=== PATIENT | female | born 1960 | race Caucasian/White ===

== ENCOUNTER 2022-05-07 19:02 | Inpatient (IN) | payer MEDICAID ==
[~2022-05-07] VITALS: Ht 167.6 cm; Wt 60.0 kg
[2022-05-07 20:34] LABS: BASOPHILS # (AUTO) 0.1 X10'3 (0-0.2); BASOPHILS % (AUTO) 1.1 % (0-1); EOSINOPHILS % (AUTO) 0.2 % (0-6); HEMATOCRIT 29.4 % (35.0-45.0); HEMOGLOBIN 9.5 g/dl (12.0-16.0); LYMPHOCYTES # (AUTO) 1.6 X10'3 (1.1-4.8); LYMPHOCYTES % (AUTO) 16.6 % (21-51); MEAN CORPUSCULAR HEMOGLOBIN 30.9 PG (27.0-31.0); MEAN CORPUSCULAR HGB CONC 32.5 g/dL (33.0-36.5); MEAN CORPUSCULAR VOLUME 95.3 FL (78-98); MEAN PLATELET VOLUME 7.9 FL (7.4-10.4); MONOCYTES # (AUTO) 0.6 X10'3 (0-0.9); MONOCYTES % (AUTO) 5.9 % (2-12); NEUTROPHILS # (AUTO) 7.3 X10'3 (1.8-7.7); NEUTROPHILS % (AUTO) 76.2 % (42-75); PLATELET COUNT 286 X10'3 (140-440); RED BLOOD COUNT 3.08 X10'6 (4.20-5.60); WHITE BLOOD COUNT 9.6 X10'3 (4.5-11.0)
[2022-05-07 20:57] LABS: ALBUMIN 1.6 G/DL (3.4-5.0); ALBUMIN/GLOBULIN RATIO 0.5 (1.1-1.5); ALKALINE PHOSPHATASE 235 IU/L (46-116); ANION GAP 7 (8-16); ASPARTATE AMINO TRANSFERASE 22 U/L (10-37); BILIRUBIN,TOTAL 0.3 MG/DL (0.1-1.0); BLOOD UREA NITROGEN 9 MG/DL (7-18); BUN/CREATININE RATIO 12.5 (10.0-20.0); CALCIUM 7.6 MG/DL (8.5-10.1); CHLORIDE 106 MMOL/L (99-107); CREATININE 0.72 MG/DL (0.40-0.90); GLUCOSE 81 MG/DL (70-104); POTASSIUM 3.3 MMOL/L (3.5-5.1); SODIUM 145 MMOL/L (135-145); TOTAL CARBON DIOXIDE 32.2 MMOL/L (24-32); TOTAL PROTEIN 5.1 G/DL (6.4-8.2); eGFR 82 ML/MIN
[2022-05-07 20:59] LABS: MAGNESIUM 1.5 MG/DL (1.5-2.4)
[2022-05-07 21:08] LABS: ALANINE AMINOTRANSFERASE < 6 U/L (12-78)
[2022-05-07] MEDS ORDERED: piperacillin/tazo 3.375gm/50ml 50 ML IV ONE (21:50)
--- NOTE | 2022-05-07 22:04 | NUR ---
DR. BELL NOTIFIED OF PTS ALLERGY TO [facility]. PER DR BELL THE PT RECIEVED ZOSYN FROM TRANSFERING FACILITY AND TO PROCEDE TO GIVE THE ZOSYN ORDERED.
[2022-05-07] MEDS ORDERED: VANCOMYCIN 1,500MG in normal saline IV soln 300 ML IV ONE (22:10)
--- NOTE | 2022-05-07 22:50 | NUR ---
PT O2 SATURATION AT 85% ON RA. PT PLACED ON 4L NASAL CANULA AND O2 SATURATION UP TO 95%
[2022-05-08] MEDS ORDERED: diphenhydrAMINE 25mg capsule PO PRN (00:30)
[2022-05-08] MEDS ORDERED: morphine 2 MG/ML inj. syringe IV PRN ×2 (00:30)
[2022-05-08] MEDS ORDERED: mag hydrox/Alum hydrox/simeth 30ml oral suspension PO PRN (00:30)
[2022-05-08] MEDS ORDERED: diphenhydrAMINE 50 mg/ml inj IV PRN (00:30)
[2022-05-08] MEDS ORDERED: acetaminophen 325mg tablet PO PRN ×2 (00:30)
[2022-05-08] MEDS ORDERED: normal saline 1000ml 1,000 ML IV SCH (00:30)
[2022-05-08] MEDS ORDERED: potassium Cl 40MEQ/1/2NS 520ml 520 ML IV PRN (00:30)
[2022-05-08] MEDS ORDERED: magnesium 4gm in 100ml NS 100 ML IV PRN (00:30)
[2022-05-08] MEDS ORDERED: potassium Cl 20 mEq SR tablet PO PRN (00:30)
[2022-05-08] MEDS ORDERED: HYDROcodone/acetaminophen 5mg/325mg tablet PO PRN (00:30)
[2022-05-08] MEDS ORDERED: ondansetron 4mg rapidly disintigrating tab PO PRN (00:30)
[2022-05-08] MEDS ORDERED: ipratropium/albuterol 3ml nebule NEB PRN (00:30)
[2022-05-08] MEDS ORDERED: magnesium Cl slow-release 64mg tablet PO PRN (00:30)
[2022-05-08 01:26] LABS: APTT 31 SECONDS (22-32); D-DIMER 2.49 MG/L FEU (0-0.50)
[2022-05-08 01:34] LABS: MAGNESIUM 1.4 MG/DL (1.5-2.4); PHOSPHORUS 2.6 MG/DL (2.3-4.5); POTASSIUM 3.2 MMOL/L (3.5-5.1)
[2022-05-08 01:58] LABS: CLARITY,URINE CLEAR (Clear); COLOR,URINE YELLOW (Yellow); GLUCOSE, URINE NEGATIVE (Neg); KETONES,URINE NEGATIVE (Neg); LEUKOCYTE ESTERASE ,URINE NEGATIVE (Neg); NITRITES, URINE NEGATIVE (Neg); OCCULT BLOOD,URINE NEGATIVE (Neg); PROTEIN,URINE NEGATIVE (Neg); UROBILINOGEN,URINE 0.2 E.U/dL (0.2-1.0)
[2022-05-08 02:03] LABS: UA COLLECTION TYPE FOLEY CATH
--- NOTE | 2022-05-08 04:35 | NUR ---
PT TRANSFERED TO ER ROOM 16.
[2022-05-08] MEDS ORDERED: HYDR-3972 PO (05:38)
[2022-05-08] MEDS ORDERED: ALBU90AE2 INH (05:38)
[2022-05-08] MEDS ORDERED: ATR0.5NEB NEB (05:38)
[2022-05-08] MEDS ORDERED: LISI40TA13 PO (05:38)
[2022-05-08] MEDS ORDERED: BUDE10.2 INH (05:38)
[2022-05-08] MEDS ORDERED: DOCU-342 PO (05:38)
[2022-05-08] MEDS ORDERED: ERGO500093 PO (05:38)
[2022-05-08] MEDS ORDERED: APIX5TAB3 PO (05:38)
[2022-05-08] MEDS ORDERED: OLOP5DRO26 EACHEYE (05:38)
[2022-05-08] MEDS ORDERED: PREG75CA75 PO (05:38)
[2022-05-08] MEDS ORDERED: METO-384 PO (05:38)
[2022-05-08] MEDS ORDERED: albuterol 2.5 MG/3 ML nebule NEB PRN (06:50)
[2022-05-08] MEDS ORDERED: ipratropium 0.5 MG/2.5ML nebule NEB PRN (06:50)
[2022-05-08] MEDS ORDERED: HYDROcodone/acetaminophen 10/325mg tab PO PRN (06:50)
[2022-05-08] MEDS ORDERED: ALBUTEROL SULFATE INH PRN (06:50)
--- NOTE | 2022-05-08 07:12 | NUR ---
attempted to give report but the nurse is busy will call back
[2022-05-08] MEDS: pantoprazole 40mg Tablet.DR PO SCH (07:30)
--- NOTE | 2022-05-08 07:30 | NUR ---
Attempted to call ER for report. Placed on hold and then no answer. Will try again.
[2022-05-08] MEDS: pregabalin 75mg capsule PO SCH ×2 (08:00→21:22)
[2022-05-08] MEDS ORDERED: non-formulary drug (Budesonide/Formoterol Fumarate (Symbicort 160-4.5 Mcg Inhaler) 2 PUFFS INH SCH (08:00)
[2022-05-08] MEDS: tetrahydrozoline 0.05% 15ml ophthalmic drops EACHEYE SCH ×2 (08:00→20:00)
[2022-05-08] MEDS: heparin, porcine 5000 units/ml vial SQ SCH ×2 (08:00→21:24)
[2022-05-08] MEDS: methylPREDNISolone sod succ 125mg/2ml vial IV SCH ×2 (08:00→21:23)
[2022-05-08] MEDS: aspirin 81mg, enteric-coated 1 TAB TABLET.DR PO SCH (08:00)
[2022-05-08] MEDS: docusate sod 100mg capsule PO SCH ×4 (08:00→20:00)
[2022-05-08] MEDS: K and/or MAG REPLACEMENT MC SCH ×2 (08:00→20:00)
[2022-05-08] MEDS: metoprolol succinate 25mg (24-HOUR) SR. Tablet PO SCH (08:30)
[2022-05-08] MEDS: apixaban 5mg tablet PO SCH ×2 (08:30→21:23)
[2022-05-08] MEDS: lisinopril 20mg tablet PO SCH (08:32)
[2022-05-08] MEDS: furosemide 20 MG/2 ML vial IV SCH ×2 (08:33→21:23)
[2022-05-08] MEDS ORDERED: vancomycin/NS 1 GM ADD-VANTAGE 250 ML IV SCH (10:00)
[2022-05-08 10:06] VITALS: BP 154/84
--- NOTE | 2022-05-08 10:10 | NUR ---
Received patient to room 350B via gurney accompanied by x1 staff. Patient alert and oriented with no complaints at this time. Patient oriented to room and call light. Call light placed within patient's reach. Bed low and locked, side railx2 up, freq rounding, patient refuses to have socks on at this time due to neuropathy. Will continue to monitor.
[2022-05-08] MEDS ORDERED: HYDROmorphone inj. 0.5 MG/0.5 ML DISP.SYRIN IV PRN (10:20)
[2022-05-08] MEDS: potassium Cl 20 mEq SR tablet PO PRN ×3 (10:27→21:23)
[2022-05-08] MEDS: HYDROcodone/acetaminophen 10/325mg tab PO PRN ×2 (10:28→21:24)
--- NOTE | 2022-05-08 10:57 | NUR ---
Received order for consult. Inappropriate referral. Didn't meet with patient.
[2022-05-08] MEDS: ondansetron/PF 4mg/2ml inj IV PRN (10:58)
[2022-05-08] MEDS ORDERED: piperacillin/tazo 4.5gm/100ml 100 ML IV SCH (11:00)
[2022-05-08] MEDS: vancomycin/NS 1 GM ADD-VANTAGE 250 ML IV SCH ×2 (11:00→22:57)
[2022-05-08] MEDS ORDERED: iohexol 350 MG/ML 50ML vial IV ONE (11:41)
[2022-05-08] MEDS ORDERED: iohexol 350MG/ML 100ml bottle IV ONE (11:41)
--- NOTE | 2022-05-08 11:58 | NUR ---
Patient down to CT.
--- NOTE | 2022-05-08 12:36 | NUR ---
Patient back to room
--- NOTE | 2022-05-08 12:58 | NUR ---
Spoke to Dr. Hancock on phone to let him know that patient HR in the 50's. Patient asymptomatic. Will continue to monitor.
[2022-05-08 13:04] VITALS: BP 145/80
--- NOTE | 2022-05-08 13:15 | NUR ---
TO DR ORTIZ PAGER, PT STILL SLIGHTLY NAUSEAS. NO VOMITING NOTED, PT ABLE TO TALK ABOUT BEING NAUSEAS WITH EASE. PAGER ID: [phone] MESSAGE: MAJO, SURG [address] 350B PATIENT STILL NAUSEAS AFTER ZOFRAN, CAN WE PLEASE GET A BACKUP NAUSEA MED?
[2022-05-08] MEDS ORDERED: metoclopramide 5 mg/ml inj IV PRN (14:10)
--- NOTE | 2022-05-08 14:24 | NUR ---
Patient down to MRI.
[2022-05-08 15:34] LABS: C DIFF SPECIMEN=DIARRHEA? ACCEPTABLE; C DIFFICILE TOXINS A&B NEGATIVE (Neg)
--- NOTE | 2022-05-08 15:36 | NUR ---
patient back from MRi.
--- NOTE | 2022-05-08 15:59 | NUR ---
PRESSURE ULCER EDUCATION: DEFINITION: A pressure ulcer is an area of skin that breaks down when you stay in one position too long. The constant pressure against the skin reduces the blood flow to that area and the affected tissue dies. CAUSES: "Being bedridden or in a wheelchair "Fragile skin "Having a chronic condition, such as diabetes or vascular disease "Inability to move certain parts of your body without assistance "Older age "Incontinence of urine or stool SYMPTOMS: "A reddened area that DOES NOT turn white when pressed on - this can be the beginning of a pressure ulcer "A blister, deep sore or a crater - these can be advanced pressure ulcers FIRST AID: "Relieve the pressure on this area "Keep the area clean and dry "Call your primary doctor if you see any of the above symptoms "DO NOT massage the area "DO NOT use a donut shaped or ring shaped pillow- these actually interfere with the blood flow and cause complications PREVENTION: "Check for pressure ulcers everyday "Change position at least every two hours to relieve pressure "Use items that help relieve pressure- pillows, sheepskin, foam padding, and powders. "Keep skin clean and dry "Eat healthy well balanced meals "Exercise daily IF YOU SEE ANY OF THESE SYMPTOMS WHILE IN THE HOSPITAL - TELL YOUR NURSE IMMEDIATELY. IF YOU SEE ANY OF THESE SYMPTOMS WHILE AT HOME OR HAVE ANY QUESTIONS OR CONCERNS ABOUT PRESSURE ULCERS - CALL YOUR PRIMARY DOCTOR IMMEDIATELY. Addendum: 05/08/22 at 1600 by Priscilla Curran RN Amended: Links added.
--- NOTE | 2022-05-08 16:10 | NUR ---
PAGER ID: [phone] MESSAGE: 350B-Allan James- per singing telegram performer pt HR in the 40's. Now she is in the 50's. Patient was sleeping. VS 159/83, 69, 20, 100%3LNC. Denies symptoms other than pain in legs. - Carmen [phone]
--- NOTE | 2022-05-08 16:11 | NUR ---
Notified by charge histotechnologist that tele manager monitoring call stating patient HR in the 40's. Went to assess patient and patient sleeping. VS were 159/83, HR 69, 20, 100% 3LNC. Patient denies any symptoms. Notified Dr. Hancock. Will continue to monitor. final operations technician in at patient's bedside.
--- NOTE | 2022-05-08 17:10 | NUR ---
Dr Hancock notified again patient's HR in the 50's. Patient was sleeping. Patient denies symptoms. Will continue to monitor.
--- NOTE | 2022-05-08 17:16 | NUR ---
DUARTE DISCONTINUED 3:45PM
[2022-05-08 18:00] VITALS: BP 153/82
--- NOTE | 2022-05-08 18:10 | NUR ---
Problems reprioritized. Patient report given, questions answered & plan of care reviewed with DAVID Munoz.
--- NOTE | 2022-05-08 19:01 | NUR ---
Patient in room FLEX 350. I have received report from INGRID HERNANDEZ and had the opportunity to ask questions and assume patient care.
[2022-05-08] MEDS ORDERED: temazepam 15mg capsule PO PRN (21:00)
[2022-05-08] MEDS: loperamide 2mg capsule PO PRN (21:23)
[2022-05-08 22:00] VITALS: BP 141/78
[2022-05-09] MEDS: HYDROcodone/acetaminophen 10/325mg tab PO PRN ×5 (04:48→22:26)
[2022-05-09 05:36] VITALS: BP 141/78
--- NOTE | 2022-05-09 06:14 | NUR ---
Problems reprioritized. Patient report given, questions answered & plan of care reviewed with STACEY RN.
--- NOTE | 2022-05-09 06:20 | NUR ---
Patient in room FLEX 350. I have received report from DAVID Munoz and had the opportunity to ask questions and assume patient care.
[2022-05-09 07:30] VITALS: BP 150/60
[2022-05-09] MEDS: budesonide 0.5mg/2ml UD nebule IH SCH ×2 (07:45→20:00)
[2022-05-09] MEDS: metoprolol succinate 25mg (24-HOUR) SR. Tablet PO SCH (08:00)
[2022-05-09] MEDS ORDERED: VANCOMYCIN LEVEL IV ONE (09:30)
[2022-05-09] MEDS: methylPREDNISolone sod succ 125mg/2ml vial IV SCH ×2 (09:36→20:14)
[2022-05-09] MEDS: furosemide 20 MG/2 ML vial IV SCH ×2 (09:37→20:14)
[2022-05-09] MEDS: aspirin 81mg, enteric-coated 1 TAB TABLET.DR PO SCH (09:38)
[2022-05-09] MEDS: pregabalin 75mg capsule PO SCH ×2 (09:38→20:14)
[2022-05-09] MEDS: lisinopril 20mg tablet PO SCH (09:39)
[2022-05-09] MEDS: docusate sod 100mg capsule PO SCH ×2 (09:39→20:00)
[2022-05-09] MEDS: apixaban 5mg tablet PO SCH ×2 (09:39→20:14)
[2022-05-09] MEDS: pantoprazole 40mg Tablet.DR PO SCH (09:39)
[2022-05-09 09:50] LABS: BASOPHILS % (AUTO) 0.9 % (0-1); EOSINOPHILS % (AUTO) 0 % (0-6); HEMATOCRIT 38.2 % (35.0-45.0); HEMOGLOBIN 12.2 g/dl (12.0-16.0); LYMPHOCYTES % (AUTO) 19.2 % (21-51); MEAN CORPUSCULAR HEMOGLOBIN 30.7 PG (27.0-31.0); MEAN CORPUSCULAR HGB CONC 32.1 g/dL (33.0-36.5); MEAN CORPUSCULAR VOLUME 95.8 FL (78-98); MEAN PLATELET VOLUME 8.3 FL (7.4-10.4); MONOCYTES # (AUTO) 0.2 X10'3 (0-0.9); MONOCYTES % (AUTO) 3.2 % (2-12); NEUTROPHILS % (AUTO) 76.7 % (42-75); PLATELET COUNT 286 X10'3 (140-440); RED BLOOD COUNT 3.98 X10'6 (4.20-5.60); RED CELL DISTRIBUTION WIDTH 18.4 % (11.5-14.5); WHITE BLOOD COUNT 5.2 X10'3 (4.5-11.0)
[2022-05-09] MEDS: tetrahydrozoline 0.05% 15ml ophthalmic drops EACHEYE SCH ×2 (10:29→20:16)
[2022-05-09 10:30] VITALS: BP 147/64
[2022-05-09 10:35] LABS: ALBUMIN 1.7 G/DL (3.4-5.0); ALBUMIN/GLOBULIN RATIO 0.4 (1.1-1.5); ALKALINE PHOSPHATASE 242 IU/L (46-116); ANION GAP 8 (8-16); ASPARTATE AMINO TRANSFERASE 20 U/L (10-37); BILIRUBIN,TOTAL 0.5 MG/DL (0.1-1.0); BLOOD UREA NITROGEN 7 MG/DL (7-18); BUN/CREATININE RATIO 13.5 (10.0-20.0); CALCIUM 7.9 MG/DL (8.5-10.1); CHLORIDE 103 MMOL/L (99-107); CHOL/HDL RATIO 4.5 (0.00-4.99); CHOLESTEROL 250 MG/DL (0-200); CREATININE 0.52 MG/DL (0.40-0.90); GLUCOSE 127 MG/DL (70-104); HDL CHOLESTEROL 55 MG/DL (35-60); LDL CHOLESTEROL 156 MG/DL (50-100); POTASSIUM 3.9 MMOL/L (3.5-5.1); SODIUM 138 MMOL/L (135-145); TOTAL CARBON DIOXIDE 27.1 MMOL/L (24-32); TOTAL PROTEIN 5.6 G/DL (6.4-8.2); TRIGLYCERIDES 162 MG/DL (20-135); eGFR > 90 ML/MIN
[2022-05-09 10:59] LABS: ALANINE AMINOTRANSFERASE < 6 U/L (12-78)
[2022-05-09 11:02] LABS: VANCOMYCIN,TROUGH 33.5 UG/ML (6.0-14.0)
[2022-05-09 11:42] LABS: MAGNESIUM 1.7 MG/DL (1.5-2.4)
[2022-05-09] MEDS: K and/or MAG REPLACEMENT MC SCH ×2 (11:48→19:16)
[2022-05-09 18:00] VITALS: BP 118/70
--- NOTE | 2022-05-09 18:30 | NUR ---
Problems reprioritized. Patient report given, questions answered & plan of care reviewed with DAVID Munoz.
--- NOTE | 2022-05-09 18:50 | NUR ---
Patient in room FLEX 350. I have received report from STACEY HERNANDEZ and had the opportunity to ask questions and assume patient care.
[2022-05-09 22:00] VITALS: BP 129/68
[2022-05-10] MEDS: HYDROcodone/acetaminophen 10/325mg tab PO PRN ×5 (03:18→20:35)
--- NOTE | 2022-05-10 06:44 | NUR ---
Problems reprioritized. Patient report given, questions answered & plan of care reviewed with HECTOR HERNANDEZ.
[2022-05-10 06:57] LABS: BASOPHILS % (AUTO) 0.7 % (0-1); EOSINOPHILS % (AUTO) 0 % (0-6); HEMATOCRIT 32.8 % (35.0-45.0); HEMOGLOBIN 10.7 g/dl (12.0-16.0); LYMPHOCYTES # (AUTO) 0.8 X10'3 (1.1-4.8); LYMPHOCYTES % (AUTO) 14.2 % (21-51); MEAN CORPUSCULAR HEMOGLOBIN 31.3 PG (27.0-31.0); MEAN CORPUSCULAR HGB CONC 32.7 g/dL (33.0-36.5); MEAN CORPUSCULAR VOLUME 95.8 FL (78-98); MEAN PLATELET VOLUME 8.8 FL (7.4-10.4); MONOCYTES # (AUTO) 0.2 X10'3 (0-0.9); MONOCYTES % (AUTO) 3.8 % (2-12); NEUTROPHILS # (AUTO) 4.6 X10'3 (1.8-7.7); NEUTROPHILS % (AUTO) 81.3 % (42-75); PLATELET COUNT 273 X10'3 (140-440); RED BLOOD COUNT 3.42 X10'6 (4.20-5.60); RED CELL DISTRIBUTION WIDTH 18.2 % (11.5-14.5); WHITE BLOOD COUNT 5.6 X10'3 (4.5-11.0)
[2022-05-10 07:00] VITALS: BP 150/79
[2022-05-10 07:23] LABS: ALANINE AMINOTRANSFERASE 6 U/L (12-78); ALBUMIN 1.7 G/DL (3.4-5.0); ALBUMIN/GLOBULIN RATIO 0.5 (1.1-1.5); ALKALINE PHOSPHATASE 190 IU/L (46-116); ANION GAP 7 (8-16); ASPARTATE AMINO TRANSFERASE 17 U/L (10-37); BILIRUBIN,TOTAL 0.3 MG/DL (0.1-1.0); BLOOD UREA NITROGEN 15 MG/DL (7-18); BUN/CREATININE RATIO 22.7 (10.0-20.0); CALCIUM 7.5 MG/DL (8.5-10.1); CHLORIDE 102 MMOL/L (99-107); CREATININE 0.66 MG/DL (0.40-0.90); GLUCOSE 154 MG/DL (70-104); MAGNESIUM 1.6 MG/DL (1.5-2.4); POTASSIUM 3.6 MMOL/L (3.5-5.1); SODIUM 139 MMOL/L (135-145); TOTAL CARBON DIOXIDE 30.5 MMOL/L (24-32); eGFR 90 ML/MIN
[2022-05-10] MEDS: budesonide 0.5mg/2ml UD nebule IH SCH (07:37)
--- NOTE | 2022-05-10 07:38 | NUR ---
Patient in room FLEX 350. I have received report from perla frazier and had the opportunity to ask questions and assume patient care.
[2022-05-10] MEDS: apixaban 5mg tablet PO SCH ×2 (08:00→20:35)
[2022-05-10] MEDS: pregabalin 75mg capsule PO SCH ×2 (08:00→20:35)
[2022-05-10] MEDS: metoprolol succinate 25mg (24-HOUR) SR. Tablet PO SCH (08:00)
[2022-05-10] MEDS: K and/or MAG REPLACEMENT MC SCH ×2 (08:00→20:50)
[2022-05-10] MEDS: aspirin 81mg, enteric-coated 1 TAB TABLET.DR PO SCH (08:00)
[2022-05-10] MEDS: furosemide 20 MG/2 ML vial IV SCH ×2 (08:00→20:35)
[2022-05-10] MEDS: docusate sod 100mg capsule PO SCH ×2 (08:00→20:00)
[2022-05-10] MEDS: pantoprazole 40mg Tablet.DR PO SCH (08:00)
[2022-05-10] MEDS: lisinopril 20mg tablet PO SCH (08:00)
[2022-05-10] MEDS: methylPREDNISolone sod succ 125mg/2ml vial IV SCH ×2 (08:01→20:35)
[2022-05-10] MEDS: tetrahydrozoline 0.05% 15ml ophthalmic drops EACHEYE SCH ×2 (08:16→20:40)
[2022-05-10 10:00] VITALS: BP 139/60
[2022-05-10] MEDS ORDERED: iohexol 350MG/ML 100ml bottle IV ONE (17:09)
[2022-05-10 18:00] VITALS: BP 133/62
--- NOTE | 2022-05-10 19:22 | NUR ---
Patient in room FLEX 350. I have received report from HECTOR HERNANDEZ and had the opportunity to ask questions and assume patient care.
[2022-05-10 22:00] VITALS: BP 147/79
[2022-05-11] MEDS: HYDROcodone/acetaminophen 10/325mg tab PO PRN ×5 (04:36→22:37)
[2022-05-11 06:00] VITALS: BP 158/70
--- NOTE | 2022-05-11 06:21 | NUR ---
Problems reprioritized. Patient report given, questions answered & plan of care reviewed with MADDIE HERNANDEZ.
--- NOTE | 2022-05-11 06:22 | NUR ---
Problems reprioritized. Patient report given, questions answered & plan of care reviewed with MADDIE HERNANDEZ.
[2022-05-11 06:24] LABS: ALBUMIN 1.8 G/DL (3.4-5.0); ALBUMIN/GLOBULIN RATIO 0.5 (1.1-1.5); ALKALINE PHOSPHATASE 168 IU/L (46-116); ANION GAP 5 (8-16); ASPARTATE AMINO TRANSFERASE 13 U/L (10-37); BILIRUBIN,TOTAL 0.2 MG/DL (0.1-1.0); BLOOD UREA NITROGEN 16 MG/DL (7-18); BUN/CREATININE RATIO 24.2 (10.0-20.0); CALCIUM 8.1 MG/DL (8.5-10.1); CHLORIDE 104 MMOL/L (99-107); CREATININE 0.66 MG/DL (0.40-0.90); GLUCOSE 139 MG/DL (70-104); MAGNESIUM 1.7 MG/DL (1.5-2.4); POTASSIUM 3.7 MMOL/L (3.5-5.1); SODIUM 141 MMOL/L (135-145); TOTAL CARBON DIOXIDE 31.8 MMOL/L (24-32); TOTAL PROTEIN 5.2 G/DL (6.4-8.2); eGFR 90 ML/MIN
[2022-05-11 06:26] LABS: ALANINE AMINOTRANSFERASE < 6 U/L (12-78)
[2022-05-11 06:31] LABS: BASOPHILS % (AUTO) 0.4 % (0-1); EOSINOPHILS % (AUTO) 0 % (0-6); HEMATOCRIT 33.4 % (35.0-45.0); HEMOGLOBIN 11.1 g/dl (12.0-16.0); LYMPHOCYTES # (AUTO) 0.8 X10'3 (1.1-4.8); LYMPHOCYTES % (AUTO) 12.3 % (21-51); MEAN CORPUSCULAR HEMOGLOBIN 31.8 PG (27.0-31.0); MEAN CORPUSCULAR HGB CONC 33.2 g/dL (33.0-36.5); MEAN CORPUSCULAR VOLUME 95.7 FL (78-98); MEAN PLATELET VOLUME 8.7 FL (7.4-10.4); MONOCYTES # (AUTO) 0.3 X10'3 (0-0.9); MONOCYTES % (AUTO) 4.8 % (2-12); NEUTROPHILS # (AUTO) 5.2 X10'3 (1.8-7.7); NEUTROPHILS % (AUTO) 82.5 % (42-75); PLATELET COUNT 302 X10'3 (140-440); RED BLOOD COUNT 3.49 X10'6 (4.20-5.60); WHITE BLOOD COUNT 6.3 X10'3 (4.5-11.0)
--- NOTE | 2022-05-11 06:48 | NUR ---
Problems reprioritized. Patient report given, questions answered & plan of care reviewed with Prudence, RN
[2022-05-11] MEDS ORDERED: iohexol 350MG/ML 100ml bottle IV ONE (07:13)
[2022-05-11] MEDS: budesonide 0.5mg/2ml UD nebule IH SCH ×2 (07:55→19:37)
[2022-05-11] MEDS: K and/or MAG REPLACEMENT MC SCH ×2 (08:00→20:00)
[2022-05-11] MEDS: apixaban 5mg tablet PO SCH ×2 (09:10→20:28)
[2022-05-11] MEDS: pantoprazole 40mg Tablet.DR PO SCH (09:10)
[2022-05-11] MEDS: aspirin 81mg, enteric-coated 1 TAB TABLET.DR PO SCH (09:10)
[2022-05-11] MEDS: pregabalin 75mg capsule PO SCH ×2 (09:11→20:28)
[2022-05-11] MEDS: docusate sod 100mg capsule PO SCH ×2 (09:11→20:29)
[2022-05-11] MEDS: lisinopril 20mg tablet PO SCH (09:19)
[2022-05-11] MEDS: furosemide 20 MG/2 ML vial IV SCH ×2 (09:21→20:28)
[2022-05-11] MEDS: tetrahydrozoline 0.05% 15ml ophthalmic drops EACHEYE SCH ×2 (09:21→20:27)
[2022-05-11] MEDS: methylPREDNISolone sod succ 125mg/2ml vial IV SCH (09:21)
[2022-05-11] MEDS: metoprolol succinate 25mg (24-HOUR) SR. Tablet PO SCH (09:22)
[2022-05-11 11:00] VITALS: BP_SYST 104; BP_SYST 182; BP_DIAS 65
[2022-05-11] MEDS ORDERED: LORazepam 2 mg/ml vial IV ONE (15:10)
[2022-05-11 17:50] VITALS: BP 160/82
--- NOTE | 2022-05-11 18:23 | NUR ---
Problems reprioritized. Patient report given, questions answered & plan of care reviewed with mayco HERNANDEZ
[2022-05-11 22:00] VITALS: BP 164/80
[2022-05-12] MEDS: HYDROcodone/acetaminophen 10/325mg tab PO PRN ×6 (02:58→23:32)
[2022-05-12 04:31] LABS: BASOPHILS % (AUTO) 0.6 % (0-1); EOSINOPHILS % (AUTO) 0 % (0-6); HEMATOCRIT 35.2 % (35.0-45.0); HEMOGLOBIN 11.7 g/dl (12.0-16.0); LYMPHOCYTES # (AUTO) 2.1 X10'3 (1.1-4.8); LYMPHOCYTES % (AUTO) 26.4 % (21-51); MEAN CORPUSCULAR HEMOGLOBIN 31.9 PG (27.0-31.0); MEAN CORPUSCULAR HGB CONC 33.2 g/dL (33.0-36.5); MEAN PLATELET VOLUME 8.4 FL (7.4-10.4); MONOCYTES # (AUTO) 0.9 X10'3 (0-0.9); MONOCYTES % (AUTO) 11.6 % (2-12); NEUTROPHILS % (AUTO) 61.4 % (42-75); PLATELET COUNT 347 X10'3 (140-440); RED BLOOD COUNT 3.67 X10'6 (4.20-5.60); WHITE BLOOD COUNT 8.1 X10'3 (4.5-11.0)
[2022-05-12 04:50] LABS: ALANINE AMINOTRANSFERASE 9 U/L (12-78); ALBUMIN/GLOBULIN RATIO 0.6 (1.1-1.5); ALKALINE PHOSPHATASE 159 IU/L (46-116); ANION GAP 7 (8-16); ASPARTATE AMINO TRANSFERASE 18 U/L (10-37); BILIRUBIN,TOTAL 0.2 MG/DL (0.1-1.0); BLOOD UREA NITROGEN 18 MG/DL (7-18); BUN/CREATININE RATIO 20.2 (10.0-20.0); CALCIUM 7.8 MG/DL (8.5-10.1); CHLORIDE 99 MMOL/L (99-107); CREATININE 0.89 MG/DL (0.40-0.90); GLUCOSE 83 MG/DL (70-104); MAGNESIUM 1.7 MG/DL (1.5-2.4); SODIUM 138 MMOL/L (135-145); TOTAL PROTEIN 5.5 G/DL (6.4-8.2); eGFR 64 ML/MIN
[2022-05-12 04:58] LABS: POTASSIUM 2.9 MMOL/L (3.5-5.1)
[2022-05-12] MEDS ORDERED: potassium Cl 40MEQ/1/2NS 520ml 520 ML IV PRN (05:30)
[2022-05-12] MEDS ORDERED: magnesium 4gm in 100ml NS 100 ML IV PRN (05:30)
[2022-05-12] MEDS ORDERED: magnesium Cl slow-release 64mg tablet PO PRN (05:30)
[2022-05-12] MEDS ORDERED: potassium Cl 20 mEq SR tablet PO PRN (05:30)
[2022-05-12] MEDS: ondansetron/PF 4mg/2ml inj IV PRN (05:58)
[2022-05-12 06:00] VITALS: BP 174/89
[2022-05-12] MEDS: budesonide 0.5mg/2ml UD nebule IH SCH (07:22)
--- NOTE | 2022-05-12 07:22 | NUR ---
Pt. refused morning pulmocort
[2022-05-12] MEDS: metoprolol succinate 25mg (24-HOUR) SR. Tablet PO SCH (07:29)
[2022-05-12] MEDS: docusate sod 100mg capsule PO SCH ×2 (07:31→19:26)
[2022-05-12] MEDS: pregabalin 75mg capsule PO SCH ×2 (07:31→19:26)
[2022-05-12] MEDS: aspirin 81mg, enteric-coated 1 TAB TABLET.DR PO SCH (07:31)
[2022-05-12] MEDS: lisinopril 20mg tablet PO SCH (07:32)
[2022-05-12] MEDS: apixaban 5mg tablet PO SCH ×2 (07:32→19:26)
[2022-05-12] MEDS: pantoprazole 40mg Tablet.DR PO SCH (07:32)
[2022-05-12] MEDS: potassium Cl 20 mEq SR tablet PO PRN ×3 (07:33→19:35)
[2022-05-12] MEDS: furosemide 20 MG/2 ML vial IV SCH ×2 (07:34→19:29)
[2022-05-12] MEDS: tetrahydrozoline 0.05% 15ml ophthalmic drops EACHEYE SCH ×2 (07:38→19:29)
[2022-05-12] MEDS: K and/or MAG REPLACEMENT MC SCH ×4 (08:00→20:00)
[2022-05-12 12:11] VITALS: BP 156/78
--- NOTE | 2022-05-12 13:32 | NUR ---
Issa Consult: Mendez Parsons 11 w/ L foot black eschar area otherwise skin intact per WO note. Will monitor for further WOC assessments and nutrition intervention needs. Addendum: 05/12/22 at [address] Amended: Links added.
--- NOTE | 2022-05-12 14:57 | NUR ---
This RN attempted med pass during PT, too early for administration. RN returned to med [employer] and will wait until the appropriate time @ 1330.
[2022-05-12 18:00] VITALS: BP 139/81
--- NOTE | 2022-05-12 18:30 | NUR ---
Patient in room FLEX 350. I have received report from Rosalina long RN and had the opportunity to ask questions and assume patient care.
[2022-05-12 22:00] VITALS: BP 111/68
[2022-05-13] VITALS (7 sets, daily range): BP systolic 90–133; BP diastolic 57–84
[2022-05-13] MEDS: loperamide 2mg capsule PO PRN (02:48)
[2022-05-13] MEDS: HYDROcodone/acetaminophen 10/325mg tab PO PRN ×4 (03:34→15:33)
--- NOTE | 2022-05-13 06:30 | NUR ---
Problems reprioritized. Patient report given, questions answered & plan of care reviewed with Rosalina long RN.
[2022-05-13 07:42] LABS: BASOPHILS # (AUTO) 0.1 X10'3 (0-0.2); BASOPHILS % (AUTO) 1.5 % (0-1); EOSINOPHILS # (AUTO) 0.1 X10'3 (0-0.9); EOSINOPHILS % (AUTO) 1.3 % (0-6); HEMATOCRIT 35.7 % (35.0-45.0); HEMOGLOBIN 11.6 g/dl (12.0-16.0); LYMPHOCYTES # (AUTO) 2.6 X10'3 (1.1-4.8); LYMPHOCYTES % (AUTO) 35.3 % (21-51); MEAN CORPUSCULAR HEMOGLOBIN 30.6 PG (27.0-31.0); MEAN CORPUSCULAR HGB CONC 32.5 g/dL (33.0-36.5); MEAN CORPUSCULAR VOLUME 94.1 FL (78-98); MEAN PLATELET VOLUME 8.8 FL (7.4-10.4); MONOCYTES # (AUTO) 0.6 X10'3 (0-0.9); MONOCYTES % (AUTO) 8.7 % (2-12); NEUTROPHILS # (AUTO) 3.9 X10'3 (1.8-7.7); NEUTROPHILS % (AUTO) 53.2 % (42-75); PLATELET COUNT 348 X10'3 (140-440); RED BLOOD COUNT 3.79 X10'6 (4.20-5.60); RED CELL DISTRIBUTION WIDTH 17.4 % (11.5-14.5); WHITE BLOOD COUNT 7.4 X10'3 (4.5-11.0)
--- NOTE | 2022-05-13 07:51 | NUR ---
Sent late tray request to dietary for [facility] diet; not pureed. RN to follow
[2022-05-13] MEDS: budesonide 0.5mg/2ml UD nebule IH SCH ×2 (08:00→20:00)
[2022-05-13] MEDS: K and/or MAG REPLACEMENT MC SCH ×4 (08:00→20:00)
[2022-05-13] MEDS: docusate sod 100mg capsule PO SCH ×2 (08:00→20:00)
[2022-05-13 08:03] LABS: ALANINE AMINOTRANSFERASE 23 U/L (12-78); ALBUMIN/GLOBULIN RATIO 0.6 (1.1-1.5); ALKALINE PHOSPHATASE 135 IU/L (46-116); ANION GAP -2 (8-16); ASPARTATE AMINO TRANSFERASE 36 U/L (10-37); BILIRUBIN,TOTAL 0.2 MG/DL (0.1-1.0); BLOOD UREA NITROGEN 18 MG/DL (7-18); BUN/CREATININE RATIO 30.5 (10.0-20.0); CALCIUM 7.8 MG/DL (8.5-10.1); CHLORIDE 102 MMOL/L (99-107); CREATININE 0.59 MG/DL (0.40-0.90); GLUCOSE 80 MG/DL (70-104); MAGNESIUM 1.5 MG/DL (1.5-2.4); POTASSIUM 4.7 MMOL/L (3.5-5.1); SODIUM 137 MMOL/L (135-145); TOTAL CARBON DIOXIDE 36.5 MMOL/L (24-32); TOTAL PROTEIN 5.1 G/DL (6.4-8.2); eGFR > 90 ML/MIN
[2022-05-13] MEDS: pantoprazole 40mg Tablet.DR PO SCH (08:12)
[2022-05-13] MEDS: apixaban 5mg tablet PO SCH ×2 (08:13→20:07)
[2022-05-13] MEDS: aspirin 81mg, enteric-coated 1 TAB TABLET.DR PO SCH (08:13)
[2022-05-13] MEDS: pregabalin 75mg capsule PO SCH ×2 (08:13→20:07)
[2022-05-13] MEDS: metoprolol succinate 25mg (24-HOUR) SR. Tablet PO SCH (08:14)
[2022-05-13] MEDS: lisinopril 20mg tablet PO SCH (08:14)
[2022-05-13] MEDS: tetrahydrozoline 0.05% 15ml ophthalmic drops EACHEYE SCH ×2 (08:15→20:06)
[2022-05-13] MEDS: furosemide 20 MG/2 ML vial IV SCH ×2 (08:21→20:06)
--- NOTE | 2022-05-13 11:42 | NUR ---
RN TO RECHECK O2 IN 10M
--- NOTE | 2022-05-13 15:35 | NUR ---
Initial: Pt admit for left foot cellulitis with LLE PVD and acute hypoxemic respiratory failure. Per MD note pt scheduled for OR on Thursday for BKA versus TMA. Pt initially on a regular diet and averaging 58% PO intake since 05/09, though diet changed to SB6 today. Pt seen at bedside, endorses a good appetite and states she normally isn't much of an eater and reports typically eating smaller meals. Pt denies food allergies though with several food preferences that were d/w dietary, see below. Pt reports difficultly chewing d/t not having her dentures with her though states SB6 diet is appropriate. Pt provided with RD contact information and encouraged to reach out if needed. LBM 05/12, documented with diarrhea. Pt receiving PRN Imodium. Will continue to follow and monitor need for further nutrition intervention. Recommendations: 1) Continue SB6 diet with thin liquids per pt preference d/t difficulty chewing 2) [place] food preferences: applesauce WB, cottage cheese and peaches WL, sherbet WS; pt likes cheese with crackers and mashed potatoes with gravy; pt dislikes pears, blueberries, raspberries, gelatin, and Ensure 3) Bowel care per rx 4) Scaled weight this admit; subsequent weekly scaled weights Addendum: 05/13/22 at [address] Amended: Links added.
--- NOTE | 2022-05-13 15:56 | NUR ---
paged Dr Hancock: Jaylan 350B. Pt has taken 3200mg Tylenol in 24H; daily max per pt orders on eMar is 3250mg. No other pain meds available. Please advise. Rosalina Abarca Addendum: 05/13/22 at 1821 by Rosalina Sarkar RN 2nd page: Jaylan 350B. Pt has taken 3200mg Tylenol in 24H; daily max per pt orders on eMar is 3250mg. No other pain meds available. Please advise. Rosalina Alejandra13
--- NOTE | 2022-05-13 18:12 | NUR ---
Patient in room FLEX 350. I have received report from Gwyn travelzachary HERNANDEZ and had the opportunity to ask questions and assume patient care.
[2022-05-13] MEDS: HYDROmorphone inj. 0.5 MG/0.5 ML DISP.SYRIN IV PRN (20:04)
--- NOTE | 2022-05-13 23:09 | NUR ---
Joss given at 2004 this shift, but forgot to save in the computer.
[2022-05-14] MEDS: HYDROcodone/acetaminophen 10/325mg tab PO PRN ×6 (00:03→20:40)
[2022-05-14 06:39] VITALS: BP 112/73
--- NOTE | 2022-05-14 06:45 | NUR ---
Problems reprioritized. Patient report given, questions answered & plan of care reviewed with Flori HERNANDEZ.
--- NOTE | 2022-05-14 06:48 | NUR ---
Patient in room FLEX 350. I have received report from Lali HERNANDEZ and had the opportunity to ask questions and assume patient care.
[2022-05-14] MEDS: pantoprazole 40mg Tablet.DR PO SCH (07:35)
[2022-05-14] MEDS: aspirin 81mg, enteric-coated 1 TAB TABLET.DR PO SCH (07:36)
[2022-05-14] MEDS: pregabalin 75mg capsule PO SCH ×2 (07:36→20:39)
[2022-05-14] MEDS: furosemide 20 MG/2 ML vial IV SCH ×2 (07:36→20:00)
[2022-05-14] MEDS: apixaban 5mg tablet PO SCH (07:36)
[2022-05-14] MEDS: tetrahydrozoline 0.05% 15ml ophthalmic drops EACHEYE SCH ×2 (07:57→20:38)
[2022-05-14] MEDS: lisinopril 20mg tablet PO SCH (08:00)
[2022-05-14] MEDS: docusate sod 100mg capsule PO SCH ×2 (08:00→20:00)
[2022-05-14] MEDS: budesonide 0.5mg/2ml UD nebule IH SCH ×2 (08:00→19:57)
[2022-05-14] MEDS: metoprolol succinate 25mg (24-HOUR) SR. Tablet PO SCH (08:00)
[2022-05-14] MEDS: K and/or MAG REPLACEMENT MC SCH ×4 (08:00→20:00)
--- NOTE | 2022-05-14 16:09 | NUR ---
Patient in room 350B, at 1428 I administered 2 tablets of PRN norco. By mistake, only one was scanned. RN notified and aware.
[2022-05-14 18:00] VITALS: BP 91/61
--- NOTE | 2022-05-14 18:20 | NUR ---
Patient in room FLEX 350. I have received report from DAVID Ruby and had the opportunity to ask questions and assume patient care.
--- NOTE | 2022-05-14 18:26 | NUR ---
Problems reprioritized. Patient report given, questions answered & plan of care reviewed with Justa Ortiz.
[2022-05-14 22:00] VITALS: BP 109/73
[2022-05-15] VITALS (11 sets, daily range): BP systolic 79–153; BP diastolic 40–91
[2022-05-15] MEDS: HYDROcodone/acetaminophen 10/325mg tab PO PRN ×3 (01:00→22:54)
--- NOTE | 2022-05-15 06:15 | NUR ---
Problems reprioritized. Patient report given, questions answered & plan of care reviewed with DVAID Ruby.
--- NOTE | 2022-05-15 06:47 | NUR ---
Patient in room FLEX 350. I have received report from Justa HERNANDEZ and had the opportunity to ask questions and assume patient care.
[2022-05-15] MEDS: budesonide 0.5mg/2ml UD nebule IH SCH ×2 (08:00→20:00)
[2022-05-15] MEDS: lisinopril 20mg tablet PO SCH (08:00)
[2022-05-15] MEDS: docusate sod 100mg capsule PO SCH ×2 (08:00→20:00)
[2022-05-15] MEDS: metoprolol succinate 25mg (24-HOUR) SR. Tablet PO SCH (08:00)
[2022-05-15] MEDS: aspirin 81mg, enteric-coated 1 TAB TABLET.DR PO SCH (08:00)
[2022-05-15] MEDS: furosemide 20 MG/2 ML vial IV SCH ×2 (08:00→20:00)
[2022-05-15] MEDS: K and/or MAG REPLACEMENT MC SCH ×4 (08:00→20:00)
[2022-05-15] MEDS: pantoprazole 40mg Tablet.DR PO SCH (08:56)
[2022-05-15] MEDS: pregabalin 75mg capsule PO SCH ×2 (08:57→22:53)
[2022-05-15] MEDS: tetrahydrozoline 0.05% 15ml ophthalmic drops EACHEYE SCH ×2 (08:59→20:00)
--- NOTE | 2022-05-15 12:34 | NUR ---
PRESSURE ULCER EDUCATION: DEFINITION: A pressure ulcer is an area of skin that breaks down when you stay in one position too long. The constant pressure against the skin reduces the blood flow to that area and the affected tissue dies. CAUSES: "Being bedridden or in a wheelchair "Fragile skin "Having a chronic condition, such as diabetes or vascular disease "Inability to move certain parts of your body without assistance "Older age "Incontinence of urine or stool SYMPTOMS: "A reddened area that DOES NOT turn white when pressed on - this can be the beginning of a pressure ulcer "A blister, deep sore or a crater - these can be advanced pressure ulcers FIRST AID: "Relieve the pressure on this area "Keep the area clean and dry "Call your primary doctor if you see any of the above symptoms "DO NOT massage the area "DO NOT use a donut shaped or ring shaped pillow- these actually interfere with the blood flow and cause complications PREVENTION: "Check for pressure ulcers everyday "Change position at least every two hours to relieve pressure "Use items that help relieve pressure- pillows, sheepskin, foam padding, and powders. "Keep skin clean and dry "Eat healthy well balanced meals "Exercise daily IF YOU SEE ANY OF THESE SYMPTOMS WHILE IN THE HOSPITAL - TELL YOUR NURSE IMMEDIATELY. IF YOU SEE ANY OF THESE SYMPTOMS WHILE AT HOME OR HAVE ANY QUESTIONS OR CONCERNS ABOUT PRESSURE ULCERS - CALL YOUR PRIMARY DOCTOR IMMEDIATELY. Addendum: 05/15/22 at 1235 by Cecile Morillo LVN Amended: Links added.
[2022-05-15] MEDS ORDERED: acetaminophen 1,000mg/100ml IV 100 ML IV ONE (15:10)
[2022-05-15] MEDS ORDERED: BUPIVAcaine/PF 2.5 mg/ml (0.25%) 30ml vial ONE (15:15)
[2022-05-15] MEDS ORDERED: ringers solution, lacted 1,000 ML IV SCH ×3 (15:20→19:00)
--- NOTE | 2022-05-15 15:35 | NUR ---
Spoke to Dr. Ware anesthesiology, ordered LR at 75 start now, and 1G of tylenol for pain. Pt will be going to sx soon.
--- NOTE | 2022-05-15 16:40 | NUR ---
Problems reprioritized. Patient report given, questions answered & plan of care reviewed with Lady heel attacher wood.
[2022-05-15] MEDS ORDERED: acetaminophen 1,000mg/100ml IV 100 ML IV PRN (17:00)
[2022-05-15] MEDS ORDERED: morphine 4 MG/ML inj SYRINge IV PRN ×2 (17:00→19:00)
[2022-05-15] MEDS ORDERED: morphine 2 MG/ML inj. syringe IV PRN ×2 (17:00→19:00)
[2022-05-15] MEDS ORDERED: meperidine/PF 25mg/ml syringe IV PRN ×6 (17:00→19:00)
[2022-05-15] MEDS ORDERED: ondansetron/PF 4mg/2ml inj IV PRN ×2 (17:00→19:00)
[2022-05-15] MEDS ORDERED: proCHLORperazine 10 MG/2 ml inj IV PRN ×2 (17:00→19:00)
--- NOTE | 2022-05-15 18:25 | NUR ---
Patient in room FLEX 350. I have received report from DAVID Ruby and had the opportunity to ask questions and assume patient care.
--- NOTE | 2022-05-15 18:39 | NUR ---
Problems reprioritized. Patient report given, questions answered & plan of care reviewed with james Ortiz.
[2022-05-15] MEDS ORDERED: fentaNYL/PF 50MCG/1 ML 2ML syringe ONE (19:04)
[2022-05-15] MEDS ORDERED: cefazolin 2gm/NS 100ml IVPB IV ONE (19:06)
[2022-05-15] MEDS ORDERED: sevoflurane 250ml liquid IH ONE (19:06)
--- NOTE | 2022-05-15 19:07 | NUR ---
physical assessment for 12/14/22. Addendum: 05/15/22 at 1907 by Flori Hooks RN Amended: Links added.
[2022-05-15] MEDS ORDERED: ceFAZolin 1000mg inj ONE ×2 (19:19)
[2022-05-15] MEDS ORDERED: propofol inj 20 ML IV ONE (19:19)
[2022-05-15] MEDS ORDERED: dexamethasone sod phosphate 4mg/ml inj. ONE (19:34)
[2022-05-15] MEDS ORDERED: ePHEDrine 50MG/ML INJ. ONE (19:34)
[2022-05-15] MEDS ORDERED: vancomycin 1,000mg inj ONE (19:42)
[2022-05-15] MEDS ORDERED: ROPIVAcaine 0.5% (5mg/ml) 30ml vial ONE (20:12)
--- NOTE | 2022-05-15 20:25 | NUR ---
Received from OR via BED, accompanied by Anesthesiologist DAVON and report given by Anesthesiolgist. PT DROWSY, OXYGENATING AROUND 90% ON ANRM. NO RESP DISTRESS NOTED BUT PT HAS A NOISY COUGH, ENC PT TO C&DB. DENIES NAUSEA, C/O MODERATE PAIN IN LLE AT SURGICAL SITE. L PARTIAL AMPUTATION OF THE FOOT, WOUND VAC IN PLACE, COVERED BY SUSU BANDAGE. INCONTINENT OF URINE, LINENS CHANGED. SCDS ON. VSS.
[2022-05-15] MEDS ORDERED: ipratropium/albuterol 3ml nebule NEB PRN (20:30)
--- NOTE | 2022-05-15 21:16 | NUR ---
BREATHING TREATMENT DONE PER ANESTHESIA ORDERS. PT ABLE TO CLEAR SECRETIONS AND SAO2 IS 96% ON 4 LPM VIA NC
--- NOTE | 2022-05-15 22:20 | NUR ---
Report called to receiving nurse SURGICAL ROOM 350B.NEW IV STARTED. Transferred via HOSPITAL BED TO ROOM 350B. BED IN LOW LOKCED POSITION WITH CALL LIGHT IN REACH. PT HOOKED UP TO VITALS MACHINE. Belongings WERE LEFT IN PT ROOM. SPecial Issues communicated to receiving nurse. Addendum: 05/15/22 at 2228 by Maria Isabel Tinajero RN, RN Amended: Links added.
[2022-05-16] MEDS: ceFAZolin/D5W- 1GM premix 50 ML IV SCH ×3 (00:47→17:17)
[2022-05-16] MEDS: HYDROmorphone inj. 0.5 MG/0.5 ML DISP.SYRIN IV PRN ×4 (02:12→17:17)
--- NOTE | 2022-05-16 06:30 | NUR ---
Patient in room FLEX 350. I have received report from DAVID Marr and had the opportunity to ask questions and assume patient care.
--- NOTE | 2022-05-16 06:30 | NUR ---
Problems reprioritized. Patient report given, questions answered & plan of care reviewed with DAVID Rodriguez.
[2022-05-16] MEDS: HYDROcodone/acetaminophen 10/325mg tab PO PRN ×4 (07:00→20:24)
[2022-05-16 07:38] VITALS: BP 149/62
[2022-05-16] MEDS: budesonide 0.5mg/2ml UD nebule IH SCH ×2 (08:00→20:00)
[2022-05-16 08:14] LABS: BASOPHILS % (AUTO) 0.4 % (0-1); EOSINOPHILS % (AUTO) 0 % (0-6); HEMOGLOBIN 11.3 g/dl (12.0-16.0); LYMPHOCYTES # (AUTO) 0.5 X10'3 (1.1-4.8); MEAN CORPUSCULAR HEMOGLOBIN 31.6 PG (27.0-31.0); MEAN CORPUSCULAR HGB CONC 33.3 g/dL (33.0-36.5); MEAN CORPUSCULAR VOLUME 95.1 FL (78-98); MEAN PLATELET VOLUME 8.6 FL (7.4-10.4); MONOCYTES # (AUTO) 0.2 X10'3 (0-0.9); MONOCYTES % (AUTO) 2.9 % (2-12); NEUTROPHILS # (AUTO) 7.3 X10'3 (1.8-7.7); NEUTROPHILS % (AUTO) 90.7 % (42-75); PLATELET COUNT 278 X10'3 (140-440); RED BLOOD COUNT 3.57 X10'6 (4.20-5.60); RED CELL DISTRIBUTION WIDTH 17.8 % (11.5-14.5)
[2022-05-16 08:20] LABS: ALBUMIN 2.2 G/DL (3.4-5.0); ANION GAP 10 (8-16); BLOOD UREA NITROGEN 20 MG/DL (7-18); BUN/CREATININE RATIO 23.5 (10.0-20.0); CALCIUM 9.2 MG/DL (8.5-10.1); CHLORIDE 99 MMOL/L (99-107); CREATININE 0.85 MG/DL (0.40-0.90); GLUCOSE 179 MG/DL (70-104); POTASSIUM 3.8 MMOL/L (3.5-5.1); SODIUM 137 MMOL/L (135-145); TOTAL CARBON DIOXIDE 28.1 MMOL/L (24-32); eGFR 68 ML/MIN
[2022-05-16 08:51] VITALS: BP_SYST 103; BP_SYST 146; BP_DIAS 58; BP_DIAS 64
[2022-05-16] MEDS: K and/or MAG REPLACEMENT MC SCH ×2 (09:10→20:00)
[2022-05-16] MEDS: magnesium hydroxide 30ml (MOM) UD suspension PO PRN (09:15)
[2022-05-16] MEDS: pantoprazole 40mg Tablet.DR PO SCH (09:16)
[2022-05-16] MEDS: docusate sod 100mg capsule PO SCH ×2 (09:16→20:23)
[2022-05-16] MEDS: aspirin 81mg, enteric-coated 1 TAB TABLET.DR PO SCH (09:16)
[2022-05-16] MEDS: pregabalin 75mg capsule PO SCH ×2 (09:16→20:23)
[2022-05-16] MEDS: tetrahydrozoline 0.05% 15ml ophthalmic drops EACHEYE SCH ×2 (09:16→20:29)
[2022-05-16] MEDS: lisinopril 20mg tablet PO SCH (09:17)
[2022-05-16] MEDS: furosemide 20 MG/2 ML vial IV SCH (09:17)
[2022-05-16] MEDS: metoprolol succinate 25mg (24-HOUR) SR. Tablet PO SCH (09:17)
[2022-05-16 10:00] VITALS: BP 119/68
--- NOTE | 2022-05-16 13:26 | NUR ---
Wound care notified of NPWT placement during left TMA by surgeon. In to check NPWT machine function and setting. The pt is sitting up in bed in no apparent acute distress. Greeted and explained the intent, agreeable. The NPWT appears to be adherent and functioning with no leaks running at -125mmHg, small sanguineous exudate noted in collection canister. Per operative notes, the surgeon instructs that the NPWT shall remain in use x5 days without dressing change, then removed and a dry dressing placed. This was communicated with the patient and the primary nurse. The pt was left in the bed with call light/personal items in reach. Addendum: 05/16/22 at 1350 by Cecile Morillo LVN Amended: Links added.
--- NOTE | 2022-05-16 14:04 | NUR ---
PRESSURE ULCER EDUCATION: DEFINITION: A pressure ulcer is an area of skin that breaks down when you stay in one position too long. The constant pressure against the skin reduces the blood flow to that area and the affected tissue dies. CAUSES: "Being bedridden or in a wheelchair "Fragile skin "Having a chronic condition, such as diabetes or vascular disease "Inability to move certain parts of your body without assistance "Older age "Incontinence of urine or stool SYMPTOMS: "A reddened area that DOES NOT turn white when pressed on - this can be the beginning of a pressure ulcer "A blister, deep sore or a crater - these can be advanced pressure ulcers FIRST AID: "Relieve the pressure on this area "Keep the area clean and dry "Call your primary doctor if you see any of the above symptoms "DO NOT massage the area "DO NOT use a donut shaped or ring shaped pillow- these actually interfere with the blood flow and cause complications PREVENTION: "Check for pressure ulcers everyday "Change position at least every two hours to relieve pressure "Use items that help relieve pressure- pillows, sheepskin, foam padding, and powders. "Keep skin clean and dry "Eat healthy well balanced meals "Exercise daily IF YOU SEE ANY OF THESE SYMPTOMS WHILE IN THE HOSPITAL - TELL YOUR NURSE IMMEDIATELY. IF YOU SEE ANY OF THESE SYMPTOMS WHILE AT HOME OR HAVE ANY QUESTIONS OR CONCERNS ABOUT PRESSURE ULCERS - CALL YOUR PRIMARY DOCTOR IMMEDIATELY. WOUND VAC EDUCATION PROVIDED BY WOUND CARE 1. Patient instructed to call the Wound Center or their Home Health Agency immediately if: * They notice a change in the color or amount of the fluid in the canister. * Their wound looks more red than usual or has a foul smell. * The skin around their wound looks reddened or irritated. * The dressing feels loose or appears to be loose. * They experience any increase or changes in their pain. * The alarm will not turn off. 2. Patient instructed that they should not be disconnected from suction for more than 2 hours at a time. * If they are not able to get the suction back on, they need to remove the dressing and take all of the foam out of the wound. * Then moisten sterile gauze with normal saline and place on/in the wound. * Change the dressing once a day until arrangements have been made to replace the wound vac dressing. 3. Patient instructed to turn the wound vac machine OFF and call 911 or go to the ED immediately if their canister fills rapidly with blood. 4. If any of these occur while in the hospital tell a nurse immediately. Addendum: 05/16/22 at 1405 by Cecile Morillo LVN Amended: Links added.
[2022-05-16 18:00] VITALS: BP 139/76
--- NOTE | 2022-05-16 18:40 | NUR ---
Problems reprioritized. Patient report given, questions answered & plan of care reviewed with DAVID Rocha.
--- NOTE | 2022-05-16 19:25 | NUR ---
Student documentation: I have reviewed and agree with all interventions, assessments performed and documented by Stanley Palumbo SN by Jaylan Landa RN Instructor.
--- NOTE | 2022-05-16 20:18 | NUR ---
Pt has refused RT treatment. Will notify RT.
[2022-05-16] MEDS: furosemide 20MG tablet PO SCH (20:23)
[2022-05-16 22:00] VITALS: BP 122/65
[2022-05-17] MEDS: ceFAZolin/D5W- 1GM premix 50 ML IV SCH ×4 (00:04→23:56)
[2022-05-17] MEDS: HYDROmorphone inj. 0.5 MG/0.5 ML DISP.SYRIN IV PRN ×3 (00:04→09:31)
[2022-05-17] MEDS: HYDROcodone/acetaminophen 10/325mg tab PO PRN ×2 (02:17→07:02)
[2022-05-17 06:00] VITALS: BP 115/66
--- NOTE | 2022-05-17 06:48 | NUR ---
Problems reprioritized. Patient report given, questions answered & plan of care reviewed with Jennifer RN.
--- NOTE | 2022-05-17 06:50 | NUR ---
Patient in room FLEX 350. I have received report from DAVID Rocha and had the opportunity to ask questions and assume patient care.
--- NOTE | 2022-05-17 07:44 | NUR ---
PT refused Nebulizer tx, refused neb tx at [facility] as well,denies sob, message sent to , PT c/o pain of 10 RN Jennifer notified states just gave pain meds, placed pt on 1lpm NC due to sp02 90%. Encourage IS and DB&C, pt effort 1500ml with IS. strong moist non productive cough. Addendum: 05/17/22 at 0746 by Cynthia Nuñez RT Amended: Links added.
[2022-05-17] MEDS: budesonide 0.5mg/2ml UD nebule IH SCH ×2 (07:46→19:26)
[2022-05-17] MEDS: lisinopril 20mg tablet PO SCH (08:00)
[2022-05-17] MEDS: pregabalin 75mg capsule PO SCH ×2 (09:29→20:01)
[2022-05-17] MEDS: aspirin 81mg, enteric-coated 1 TAB TABLET.DR PO SCH (09:30)
[2022-05-17] MEDS: metoprolol succinate 25mg (24-HOUR) SR. Tablet PO SCH (09:30)
[2022-05-17] MEDS: tetrahydrozoline 0.05% 15ml ophthalmic drops EACHEYE SCH ×2 (09:30→20:01)
[2022-05-17] MEDS: pantoprazole 40mg Tablet.DR PO SCH (09:30)
[2022-05-17] MEDS: bisacodyl 10mg suppository rectal RC PRN (09:30)
[2022-05-17] MEDS: docusate sod 100mg capsule PO SCH ×2 (09:30→20:01)
[2022-05-17] MEDS: furosemide 20MG tablet PO SCH ×2 (09:30→20:00)
[2022-05-17 10:00] VITALS: BP 107/68
[2022-05-17 10:58] LABS: BASOPHILS # (AUTO) 0.1 X10'3 (0-0.2); BASOPHILS % (AUTO) 0.7 % (0-1); EOSINOPHILS # (AUTO) 0.1 X10'3 (0-0.9); EOSINOPHILS % (AUTO) 0.4 % (0-6); HEMATOCRIT 31.1 % (35.0-45.0); HEMOGLOBIN 10.3 g/dl (12.0-16.0); LYMPHOCYTES # (AUTO) 0.8 X10'3 (1.1-4.8); LYMPHOCYTES % (AUTO) 6.9 % (21-51); MEAN CORPUSCULAR HEMOGLOBIN 31.4 PG (27.0-31.0); MEAN CORPUSCULAR HGB CONC 33.1 g/dL (33.0-36.5); MEAN CORPUSCULAR VOLUME 95.1 FL (78-98); MEAN PLATELET VOLUME 8.8 FL (7.4-10.4); MONOCYTES # (AUTO) 0.6 X10'3 (0-0.9); MONOCYTES % (AUTO) 4.8 % (2-12); NEUTROPHILS # (AUTO) 10.6 X10'3 (1.8-7.7); NEUTROPHILS % (AUTO) 87.2 % (42-75); PLATELET COUNT 301 X10'3 (140-440); RED BLOOD COUNT 3.27 X10'6 (4.20-5.60); RED CELL DISTRIBUTION WIDTH 17.1 % (11.5-14.5); WHITE BLOOD COUNT 12.2 X10'3 (4.5-11.0)
[2022-05-17 11:05] LABS: ALANINE AMINOTRANSFERASE 13 U/L (12-78); ALBUMIN 2.1 G/DL (3.4-5.0); ALBUMIN/GLOBULIN RATIO 0.6 (1.1-1.5); ALKALINE PHOSPHATASE 120 IU/L (46-116); ANION GAP 5 (8-16); ASPARTATE AMINO TRANSFERASE 22 U/L (10-37); BILIRUBIN,TOTAL 0.3 MG/DL (0.1-1.0); BLOOD UREA NITROGEN 20 MG/DL (7-18); BUN/CREATININE RATIO 30.3 (10.0-20.0); CALCIUM 8.5 MG/DL (8.5-10.1); CHLORIDE 100 MMOL/L (99-107); CREATININE 0.66 MG/DL (0.40-0.90); GLUCOSE 88 MG/DL (70-104); POTASSIUM 3.6 MMOL/L (3.5-5.1); SODIUM 135 MMOL/L (135-145); TOTAL CARBON DIOXIDE 30.3 MMOL/L (24-32); TOTAL PROTEIN 5.7 G/DL (6.4-8.2); eGFR 90 ML/MIN
[2022-05-17] MEDS: K and/or MAG REPLACEMENT MC SCH ×2 (11:15→20:00)
--- NOTE | 2022-05-17 12:00 | NUR ---
Reassessment: Per EMR pt POD #2 s/p left TMA and with a wound VAC in place. PO intake has improved, documented with average 69% PO intake of meals since 05/14 meeting estimated nutrient needs. Pt continues receiving food preferences. LBM 05/14, receiving routine and PRN bowel care. No further nutrition intervention implemented at this time. Will continue to follow and make recommendations as appropriate. Recommendations: 1) Continue SB6 diet with thin liquids per pt preference d/t difficulty chewing 2) [place] food preferences: applesauce WB, cottage cheese and peaches WL, neri WS; pt likes cheese with crackers and mashed potatoes with gravy; pt dislikes pears, blueberries, raspberries, gelatin, and Ensure 3) Routine and PRN bowel care 4) Scaled weight this admit; subsequent weekly scaled weights Addendum: 05/17/22 at [address] Amended: Links added.
[2022-05-17] MEDS ORDERED: oxyCODONE/APAP 10/325mg tablet PO PRN (12:15)
[2022-05-17] MEDS: HYDROmorphone 1 mg/ml syringe IV PRN (12:32)
[2022-05-17] MEDS: oxyCODONE/APAP 10/325mg tablet PO PRN ×2 (15:23→20:01)
--- NOTE | 2022-05-17 18:20 | NUR ---
Problems reprioritized. Patient report given, questions answered & plan of care reviewed with DAVID Rocha.
[2022-05-17 20:00] VITALS: BP 94/51
[2022-05-17 22:00] VITALS: BP 91/52
[2022-05-18] VITALS (7 sets, daily range): BP systolic 77–116; BP diastolic 47–94
[2022-05-18] MEDS: oxyCODONE/APAP 10/325mg tablet PO PRN ×2 (04:10→09:12)
[2022-05-18 04:53] LABS: BASOPHILS # (AUTO) 0.1 X10'3 (0-0.2); BASOPHILS % (AUTO) 0.8 % (0-1); EOSINOPHILS # (AUTO) 0.1 X10'3 (0-0.9); EOSINOPHILS % (AUTO) 0.9 % (0-6); HEMATOCRIT 29.9 % (35.0-45.0); LYMPHOCYTES % (AUTO) 10.7 % (21-51); MEAN CORPUSCULAR HEMOGLOBIN 31.6 PG (27.0-31.0); MEAN CORPUSCULAR HGB CONC 33.4 g/dL (33.0-36.5); MEAN CORPUSCULAR VOLUME 94.7 FL (78-98); MEAN PLATELET VOLUME 8.9 FL (7.4-10.4); MONOCYTES # (AUTO) 0.6 X10'3 (0-0.9); MONOCYTES % (AUTO) 6.1 % (2-12); NEUTROPHILS # (AUTO) 7.9 X10'3 (1.8-7.7); NEUTROPHILS % (AUTO) 81.5 % (42-75); PLATELET COUNT 319 X10'3 (140-440); RED BLOOD COUNT 3.15 X10'6 (4.20-5.60); RED CELL DISTRIBUTION WIDTH 16.9 % (11.5-14.5); WHITE BLOOD COUNT 9.7 X10'3 (4.5-11.0)
[2022-05-18 04:59] LABS: ALANINE AMINOTRANSFERASE 9 U/L (12-78); ALBUMIN/GLOBULIN RATIO 0.5 (1.1-1.5); ALKALINE PHOSPHATASE 123 IU/L (46-116); ANION GAP 3 (8-16); ASPARTATE AMINO TRANSFERASE 20 U/L (10-37); BILIRUBIN,TOTAL 0.6 MG/DL (0.1-1.0); BLOOD UREA NITROGEN 18 MG/DL (7-18); BUN/CREATININE RATIO 27.3 (10.0-20.0); CHLORIDE 100 MMOL/L (99-107); CREATININE 0.66 MG/DL (0.40-0.90); GLUCOSE 86 MG/DL (70-104); POTASSIUM 3.7 MMOL/L (3.5-5.1); SODIUM 135 MMOL/L (135-145); TOTAL CARBON DIOXIDE 31.6 MMOL/L (24-32); TOTAL PROTEIN 5.8 G/DL (6.4-8.2); eGFR 90 ML/MIN
--- NOTE | 2022-05-18 06:19 | NUR ---
Problems reprioritized. Patient report given, questions answered & plan of care reviewed with Becky HERNANDEZ. Addendum: 05/18/22 at 0620 by Josefina Plaza RN Amended: Links added.
--- NOTE | 2022-05-18 06:34 | NUR ---
Patient in room FLEX 350. I have received report from [employer] and had the opportunity to ask questions and assume patient care.
[2022-05-18] MEDS: tetrahydrozoline 0.05% 15ml ophthalmic drops EACHEYE SCH ×2 (07:14→20:14)
[2022-05-18] MEDS: pantoprazole 40mg Tablet.DR PO SCH (07:14)
[2022-05-18] MEDS: aspirin 81mg, enteric-coated 1 TAB TABLET.DR PO SCH (07:15)
[2022-05-18] MEDS: ceFAZolin/D5W- 1GM premix 50 ML IV SCH ×2 (07:15→15:53)
[2022-05-18] MEDS: pregabalin 75mg capsule PO SCH ×2 (07:15→20:13)
[2022-05-18] MEDS: metoprolol succinate 25mg (24-HOUR) SR. Tablet PO SCH (07:21)
[2022-05-18] MEDS: lisinopril 20mg tablet PO SCH (07:22)
[2022-05-18] MEDS: furosemide 20MG tablet PO SCH ×2 (07:24→20:13)
[2022-05-18] MEDS: K and/or MAG REPLACEMENT MC SCH ×2 (07:25→20:00)
[2022-05-18] MEDS: docusate sod 100mg capsule PO SCH ×2 (07:26→20:13)
[2022-05-18] MEDS: budesonide 0.5mg/2ml UD nebule IH SCH (08:00)
--- NOTE | 2022-05-18 11:52 | NUR ---
Rounded with hospitalist. MD is aware of patient's low BP. Ok to give pain medication.
--- NOTE | 2022-05-18 12:28 | NUR ---
Student documentation:Codie peng [facility] have reviewed and agree with all interventions, medication administration per hospital policy, and assessments performed and documented by the student.
[2022-05-18] MEDS: HYDROcodone/acetaminophen 10/325mg tab PO PRN ×3 (13:53→23:11)
--- NOTE | 2022-05-18 18:24 | NUR ---
Problems reprioritized. Patient report given, questions answered & plan of care reviewed with Harpal.
[2022-05-18] MEDS: HYDROmorphone 1 mg/ml syringe IV PRN (20:15)
[2022-05-19] MEDS: ceFAZolin/D5W- 1GM premix 50 ML IV SCH ×3 (00:49→16:58)
[2022-05-19] MEDS: HYDROmorphone 1 mg/ml syringe IV PRN ×4 (02:32→20:53)
[2022-05-19] MEDS: HYDROcodone/acetaminophen 10/325mg tab PO PRN ×4 (05:15→22:19)
[2022-05-19 06:00] VITALS: BP 120/72
--- NOTE | 2022-05-19 06:35 | NUR ---
Problems reprioritized. Patient report given, questions answered & plan of care reviewed with Gilmar RUBY.
--- NOTE | 2022-05-19 06:48 | NUR ---
Patient in room FLEX 350. I have received report from DAVID Rowan and had the opportunity to ask questions and assume patient care.
[2022-05-19 06:53] LABS: BASOPHILS # (AUTO) 0.1 X10'3 (0-0.2); BASOPHILS % (AUTO) 1.2 % (0-1); EOSINOPHILS # (AUTO) 0.1 X10'3 (0-0.9); EOSINOPHILS % (AUTO) 1.6 % (0-6); HEMATOCRIT 27.6 % (35.0-45.0); LYMPHOCYTES # (AUTO) 1.2 X10'3 (1.1-4.8); LYMPHOCYTES % (AUTO) 14.3 % (21-51); MEAN CORPUSCULAR HGB CONC 32.8 g/dL (33.0-36.5); MEAN CORPUSCULAR VOLUME 94.4 FL (78-98); MEAN PLATELET VOLUME 9.2 FL (7.4-10.4); MONOCYTES # (AUTO) 0.8 X10'3 (0-0.9); MONOCYTES % (AUTO) 8.9 % (2-12); NEUTROPHILS # (AUTO) 6.3 X10'3 (1.8-7.7); PLATELET COUNT 283 X10'3 (140-440); RED BLOOD COUNT 2.92 X10'6 (4.20-5.60); RED CELL DISTRIBUTION WIDTH 16.4 % (11.5-14.5); WHITE BLOOD COUNT 8.5 X10'3 (4.5-11.0)
[2022-05-19 07:19] LABS: ALANINE AMINOTRANSFERASE 7 U/L (12-78); ALBUMIN 1.9 G/DL (3.4-5.0); ALBUMIN/GLOBULIN RATIO 0.5 (1.1-1.5); ALKALINE PHOSPHATASE 133 IU/L (46-116); ANION GAP 4 (8-16); ASPARTATE AMINO TRANSFERASE 17 U/L (10-37); BILIRUBIN,TOTAL 0.3 MG/DL (0.1-1.0); BLOOD UREA NITROGEN 15 MG/DL (7-18); BUN/CREATININE RATIO 23.8 (10.0-20.0); CALCIUM 8.9 MG/DL (8.5-10.1); CHLORIDE 99 MMOL/L (99-107); CREATININE 0.63 MG/DL (0.40-0.90); GLUCOSE 87 MG/DL (70-104); POTASSIUM 3.4 MMOL/L (3.5-5.1); SODIUM 136 MMOL/L (135-145); TOTAL CARBON DIOXIDE 32.6 MMOL/L (24-32); TOTAL PROTEIN 5.8 G/DL (6.4-8.2); eGFR > 90 ML/MIN
[2022-05-19] MEDS: K and/or MAG REPLACEMENT MC SCH ×2 (08:00→20:00)
[2022-05-19] MEDS: aspirin 81mg, enteric-coated 1 TAB TABLET.DR PO SCH (08:35)
[2022-05-19] MEDS: metoprolol succinate 25mg (24-HOUR) SR. Tablet PO SCH (08:35)
[2022-05-19] MEDS: furosemide 20MG tablet PO SCH ×2 (08:36→20:52)
[2022-05-19] MEDS: lisinopril 20mg tablet PO SCH (08:36)
[2022-05-19] MEDS: pantoprazole 40mg Tablet.DR PO SCH (08:36)
[2022-05-19] MEDS: docusate sod 100mg capsule PO SCH ×2 (08:36→20:00)
[2022-05-19] MEDS: pregabalin 75mg capsule PO SCH ×2 (08:37→20:52)
[2022-05-19] MEDS: tetrahydrozoline 0.05% 15ml ophthalmic drops EACHEYE SCH ×2 (08:41→20:57)
--- NOTE | 2022-05-19 10:57 | NUR ---
Page Sent PAGER ID: [phone] MESSAGE: 350 b bryce, i need a k order for this pt k is 3.4 please call me back as soon as you can. thanks tracy max.
[2022-05-19 11:00] VITALS: BP 111/75
[2022-05-19] MEDS ORDERED: potassium Cl 20 mEq SR tablet PO STA (11:00)
--- NOTE | 2022-05-19 11:36 | NUR ---
WOC check on incisional NPWT. There is good suction is noted at 75mmHg continuous. Patient is resting comfortably and in no distress. Plan to see tomorrow for removal of incisional vac and splint per Dr. Veras's orders.
--- NOTE | 2022-05-19 13:49 | NUR ---
ELECTRICAL PARTS RECONDITIONER documentation: I have reviewed and agree with all interventions, assessments performed and documented by Gilmar RUBY II.
--- NOTE | 2022-05-19 16:06 | NUR ---
F/u 05/19: RN TC requests RD input regarding ONS supplementation given picky eating at times. Noted ~50% recent meals though fluctuating intake hx. Given pt reports disliking Ensure w/ L TMA wound RD recommends Alberto smoothie BIDBD if physician agreeable; per RN rosita if able. Noted Alberto smoothie BIDBD now active in EMR-dietary notified. Recommendations: 1) Continue SB6 diet with thin liquids per pt preference d/t difficulty chewing 2) [place] Alberto smoothie BIDBD for wound healing; encourage PO 3) [place] food preferences: applesauce WB, cottage cheese and peaches WL, sherbet WS; pt likes cheese with crackers and mashed potatoes with gravy; pt dislikes pears, blueberries, raspberries, gelatin, and Ensure 4) Routine and PRN bowel care 5) Scaled weight this admit; subsequent weekly scaled weights Addendum: 05/19/22 at [address] Amended: Links added.
[2022-05-19] MEDS ORDERED: NUT.TX.IMPAIRED DIGEST FXN (Ensure Clear) 237 ML PO SCH (17:30)
--- NOTE | 2022-05-19 18:47 | NUR ---
Problems reprioritized. Patient report given, questions answered & plan of care reviewed with DAVID Whalen.
[2022-05-19] MEDS: JUVEN Smoothie Arginine/Glut./Ca2+Bmb (Juven 19.3pkt) 240ml cup PO SCH (20:00)
[2022-05-19 22:00] VITALS: BP 101/59
[2022-05-20] MEDS: ceFAZolin/D5W- 1GM premix 50 ML IV SCH ×2 (00:17→07:31)
[2022-05-20] MEDS: HYDROmorphone 1 mg/ml syringe IV PRN ×5 (02:07→20:31)
[2022-05-20] MEDS: HYDROcodone/acetaminophen 10/325mg tab PO PRN ×5 (05:06→22:39)
[2022-05-20 06:00] VITALS: BP 106/60
--- NOTE | 2022-05-20 06:15 | NUR ---
Patient in room FLEX 350. I have received report from Marlee HERNANDEZ and had the opportunity to ask questions and assume patient care.
[2022-05-20 06:55] LABS: BASOPHILS # (AUTO) 0.1 X10'3 (0-0.2); BASOPHILS % (AUTO) 1.4 % (0-1); EOSINOPHILS # (AUTO) 0.3 X10'3 (0-0.9); EOSINOPHILS % (AUTO) 2.7 % (0-6); HEMOGLOBIN 9.6 g/dl (12.0-16.0); LYMPHOCYTES # (AUTO) 1.3 X10'3 (1.1-4.8); LYMPHOCYTES % (AUTO) 13.2 % (21-51); MEAN CORPUSCULAR HEMOGLOBIN 30.9 PG (27.0-31.0); MEAN CORPUSCULAR HGB CONC 31.9 g/dL (33.0-36.5); MEAN CORPUSCULAR VOLUME 96.9 FL (78-98); MEAN PLATELET VOLUME 8.6 FL (7.4-10.4); MONOCYTES # (AUTO) 0.8 X10'3 (0-0.9); MONOCYTES % (AUTO) 8.3 % (2-12); NEUTROPHILS # (AUTO) 7.2 X10'3 (1.8-7.7); NEUTROPHILS % (AUTO) 74.4 % (42-75); PLATELET COUNT 296 X10'3 (140-440); RED BLOOD COUNT 3.09 X10'6 (4.20-5.60); RED CELL DISTRIBUTION WIDTH 16.6 % (11.5-14.5); WHITE BLOOD COUNT 9.6 X10'3 (4.5-11.0)
[2022-05-20 07:08] LABS: ALANINE AMINOTRANSFERASE 19 U/L (12-78); ALBUMIN 1.9 G/DL (3.4-5.0); ALBUMIN/GLOBULIN RATIO 0.5 (1.1-1.5); ALKALINE PHOSPHATASE 152 IU/L (46-116); ANION GAP 5 (8-16); ASPARTATE AMINO TRANSFERASE 38 U/L (10-37); BILIRUBIN,TOTAL 0.3 MG/DL (0.1-1.0); BLOOD UREA NITROGEN 18 MG/DL (7-18); BUN/CREATININE RATIO 27.7 (10.0-20.0); CALCIUM 9.1 MG/DL (8.5-10.1); CHLORIDE 98 MMOL/L (99-107); CREATININE 0.65 MG/DL (0.40-0.90); GLUCOSE 100 MG/DL (70-104); POTASSIUM 4.4 MMOL/L (3.5-5.1); SODIUM 133 MMOL/L (135-145); TOTAL CARBON DIOXIDE 29.6 MMOL/L (24-32); TOTAL PROTEIN 6.1 G/DL (6.4-8.2); eGFR > 90 ML/MIN
[2022-05-20 07:18] VITALS: BP 97/66
[2022-05-20] MEDS: furosemide 20MG tablet PO SCH ×2 (07:20→08:00)
[2022-05-20] MEDS: pantoprazole 40mg Tablet.DR PO SCH (07:20)
[2022-05-20] MEDS: docusate sod 100mg capsule PO SCH ×2 (07:20→20:39)
[2022-05-20] MEDS: pregabalin 75mg capsule PO SCH ×2 (07:21→20:38)
[2022-05-20] MEDS: aspirin 81mg, enteric-coated 1 TAB TABLET.DR PO SCH (07:21)
[2022-05-20] MEDS: tetrahydrozoline 0.05% 15ml ophthalmic drops EACHEYE SCH ×2 (07:31→20:37)
[2022-05-20] MEDS: JUVEN Smoothie Arginine/Glut./Ca2+Bmb (Juven 19.3pkt) 240ml cup PO SCH ×2 (08:00→19:49)
[2022-05-20] MEDS: metoprolol succinate 25mg (24-HOUR) SR. Tablet PO SCH (08:00)
[2022-05-20] MEDS: K and/or MAG REPLACEMENT MC SCH ×2 (08:00→20:00)
[2022-05-20] MEDS: lisinopril 20mg tablet PO SCH (08:00)
--- NOTE | 2022-05-20 09:40 | NUR ---
patient blood pressure was 97/66 advised md larkin held lasix and bp meds.
[2022-05-20 10:00] VITALS: BP 100/48
--- NOTE | 2022-05-20 13:37 | NUR ---
WOUND INFECTION EDUCATION PROVIDED BY WOUND CARE 1. Patient instructed to call their primary doctor, or go the ED immediately if any of the following symptoms occur: * Increased pain in wound * Increase in drainage from the wound * Redness in the skin surrounding the wound * Warmth in the skin surrounding the wound * Bleeding from the wound * Temperature of 101 or greater 2. If any of these occur while in the hospital tell a nurse immediately. Addendum: 05/20/22 at 1338 by Caridad Duckworth RN Amended: Links added.
[2022-05-20 18:00] VITALS: BP 118/63
[2022-05-20] MEDS: apixaban 5mg tablet PO SCH (20:37)
[2022-05-20 23:00] VITALS: BP 97/59
[2022-05-21] MEDS: HYDROcodone/acetaminophen 10/325mg tab PO PRN ×3 (05:12→22:42)
[2022-05-21 06:00] VITALS: BP 120/66
[2022-05-21 06:21] LABS: BASOPHILS # (AUTO) 0.1 X10'3 (0-0.2); BASOPHILS % (AUTO) 1.2 % (0-1); EOSINOPHILS # (AUTO) 0.2 X10'3 (0-0.9); EOSINOPHILS % (AUTO) 2.6 % (0-6); HEMATOCRIT 28.4 % (35.0-45.0); HEMOGLOBIN 9.3 g/dl (12.0-16.0); LYMPHOCYTES # (AUTO) 1.4 X10'3 (1.1-4.8); LYMPHOCYTES % (AUTO) 15.3 % (21-51); MEAN CORPUSCULAR HEMOGLOBIN 30.9 PG (27.0-31.0); MEAN CORPUSCULAR VOLUME 93.6 FL (78-98); MONOCYTES # (AUTO) 0.7 X10'3 (0-0.9); NEUTROPHILS # (AUTO) 6.8 X10'3 (1.8-7.7); NEUTROPHILS % (AUTO) 73.9 % (42-75); PLATELET COUNT 340 X10'3 (140-440); RED BLOOD COUNT 3.03 X10'6 (4.20-5.60); RED CELL DISTRIBUTION WIDTH 15.9 % (11.5-14.5); WHITE BLOOD COUNT 9.3 X10'3 (4.5-11.0)
[2022-05-21 06:38] LABS: ALANINE AMINOTRANSFERASE 33 U/L (12-78); ALBUMIN/GLOBULIN RATIO 0.5 (1.1-1.5); ALKALINE PHOSPHATASE 180 IU/L (46-116); ANION GAP 6 (8-16); ASPARTATE AMINO TRANSFERASE 58 U/L (10-37); BILIRUBIN,TOTAL 0.3 MG/DL (0.1-1.0); BLOOD UREA NITROGEN 19 MG/DL (7-18); BUN/CREATININE RATIO 32.2 (10.0-20.0); CALCIUM 9.2 MG/DL (8.5-10.1); CHLORIDE 97 MMOL/L (99-107); CREATININE 0.59 MG/DL (0.40-0.90); GLUCOSE 121 MG/DL (70-104); POTASSIUM 4.3 MMOL/L (3.5-5.1); SODIUM 132 MMOL/L (135-145); TOTAL CARBON DIOXIDE 28.8 MMOL/L (24-32); TOTAL PROTEIN 6.3 G/DL (6.4-8.2); eGFR > 90 ML/MIN
[2022-05-21 07:33] VITALS: BP 120/66
[2022-05-21] MEDS: pantoprazole 40mg Tablet.DR PO SCH (07:50)
[2022-05-21] MEDS: K and/or MAG REPLACEMENT MC SCH ×2 (08:00→20:00)
[2022-05-21] MEDS: lisinopril 20mg tablet PO SCH (08:00)
[2022-05-21] MEDS: aspirin 81mg, enteric-coated 1 TAB TABLET.DR PO SCH (08:17)
[2022-05-21] MEDS: metoprolol succinate 25mg (24-HOUR) SR. Tablet PO SCH (08:17)
[2022-05-21] MEDS: docusate sod 100mg capsule PO SCH (08:18)
[2022-05-21] MEDS: pregabalin 75mg capsule PO SCH ×2 (08:19→20:30)
[2022-05-21] MEDS: JUVEN Smoothie Arginine/Glut./Ca2+Bmb (Juven 19.3pkt) 240ml cup PO SCH ×2 (08:21→20:28)
[2022-05-21] MEDS: HYDROmorphone 1 mg/ml syringe IV PRN ×3 (08:23→19:21)
--- NOTE | 2022-05-21 09:00 | NUR ---
MD aware no apparent/report BM x 5 days and YUSEF pain on palpation. OKed docusate, MOM and suppository use.
[2022-05-21] MEDS: apixaban 5mg tablet PO SCH ×2 (09:30→20:30)
[2022-05-21 10:00] VITALS: BP 100/68
[2022-05-21] MEDS: HYDROcodone/acetaminophen 5mg/325mg tablet PO PRN (10:46)
[2022-05-21] MEDS: furosemide 20MG tablet PO SCH ×2 (11:08→20:33)
[2022-05-21] MEDS: tetrahydrozoline 0.05% 15ml ophthalmic drops EACHEYE SCH ×2 (12:39→20:29)
[2022-05-21] MEDS: magnesium hydroxide 30ml (MOM) UD suspension PO PRN (16:00)
[2022-05-21] MEDS: bisacodyl 10mg suppository rectal RC PRN (17:42)
[2022-05-21 18:00] VITALS: BP 137/81
--- NOTE | 2022-05-21 18:00 | NUR ---
R/t workload unable to review all orientee's charting directly after admission to electronic chart. Did assess if RN had performed certain tasks before assigning such as entering VS, administering medications, and charting assessments. Orientee did state that she had performed these tasks before and was familiar with them and did not need help. At no point did she communicate that she needed help charting. While reviewing documentation, this primary RN does not agree with any complete charting entered by ARTIS arriola other than medication administrations which were closely followed and reviewed.
[2022-05-21] MEDS ORDERED: docusate sod 100mg capsule PO SCH (20:00)
[2022-05-21 20:34] VITALS: BP 103/63
[2022-05-21 22:00] VITALS: BP 108/56
[2022-05-22] MEDS: HYDROmorphone 1 mg/ml syringe IV PRN ×4 (01:34→21:22)
[2022-05-22] MEDS: HYDROcodone/acetaminophen 10/325mg tab PO PRN ×3 (04:38→19:37)
[2022-05-22] MEDS ORDERED: docusate sod 250mg capsule PO SCH (04:41)
--- NOTE | 2022-05-22 06:28 | NUR ---
Gave report to Pallavi HERNANDEZ.
[2022-05-22 06:33] LABS: BASOPHILS # (AUTO) 0.1 X10'3 (0-0.2); BASOPHILS % (AUTO) 1.1 % (0-1); EOSINOPHILS # (AUTO) 0.2 X10'3 (0-0.9); EOSINOPHILS % (AUTO) 2.7 % (0-6); HEMOGLOBIN 8.9 g/dl (12.0-16.0); LYMPHOCYTES # (AUTO) 1.5 X10'3 (1.1-4.8); LYMPHOCYTES % (AUTO) 17.8 % (21-51); MEAN CORPUSCULAR HEMOGLOBIN 31.1 PG (27.0-31.0); MEAN CORPUSCULAR HGB CONC 33.2 g/dL (33.0-36.5); MEAN CORPUSCULAR VOLUME 93.7 FL (78-98); MONOCYTES # (AUTO) 0.6 X10'3 (0-0.9); MONOCYTES % (AUTO) 7.3 % (2-12); NEUTROPHILS # (AUTO) 6.1 X10'3 (1.8-7.7); NEUTROPHILS % (AUTO) 71.1 % (42-75); PLATELET COUNT 349 X10'3 (140-440); RED BLOOD COUNT 2.88 X10'6 (4.20-5.60); RED CELL DISTRIBUTION WIDTH 15.9 % (11.5-14.5); WHITE BLOOD COUNT 8.6 X10'3 (4.5-11.0)
[2022-05-22 06:50] LABS: ALANINE AMINOTRANSFERASE 39 U/L (12-78); ALBUMIN 2.1 G/DL (3.4-5.0); ALBUMIN/GLOBULIN RATIO 0.5 (1.1-1.5); ALKALINE PHOSPHATASE 200 IU/L (46-116); ANION GAP 3 (8-16); ASPARTATE AMINO TRANSFERASE 51 U/L (10-37); BILIRUBIN,TOTAL 0.5 MG/DL (0.1-1.0); BLOOD UREA NITROGEN 19 MG/DL (7-18); BUN/CREATININE RATIO 37.3 (10.0-20.0); CALCIUM 9.4 MG/DL (8.5-10.1); CHLORIDE 95 MMOL/L (99-107); CREATININE 0.51 MG/DL (0.40-0.90); GLUCOSE 95 MG/DL (70-104); POTASSIUM 4.1 MMOL/L (3.5-5.1); SODIUM 135 MMOL/L (135-145); TOTAL CARBON DIOXIDE 36.7 MMOL/L (24-32); TOTAL PROTEIN 6.4 G/DL (6.4-8.2); eGFR > 90 ML/MIN
[2022-05-22 07:05] VITALS: BP 98/58
--- NOTE | 2022-05-22 07:05 | NUR ---
Patient in room FLEX 350. I have received report from Akosua HERNANDEZ and had the opportunity to ask questions and assume patient care.
[2022-05-22] MEDS: pantoprazole 40mg Tablet.DR PO SCH (07:52)
[2022-05-22] MEDS: apixaban 5mg tablet PO SCH ×2 (07:52→19:37)
[2022-05-22] MEDS: aspirin 81mg, enteric-coated 1 TAB TABLET.DR PO SCH (07:52)
[2022-05-22] MEDS: docusate sod 100mg capsule PO SCH ×2 (07:52→19:37)
[2022-05-22] MEDS: pregabalin 75mg capsule PO SCH ×2 (07:53→19:35)
[2022-05-22] MEDS: K and/or MAG REPLACEMENT MC SCH ×2 (07:53→19:16)
[2022-05-22] MEDS: tetrahydrozoline 0.05% 15ml ophthalmic drops EACHEYE SCH ×2 (07:53→19:38)
[2022-05-22] MEDS: furosemide 20MG tablet PO SCH ×2 (07:54→19:35)
[2022-05-22] MEDS: lisinopril 20mg tablet PO SCH (07:54)
[2022-05-22] MEDS: metoprolol succinate 25mg (24-HOUR) SR. Tablet PO SCH (07:54)
[2022-05-22] MEDS: JUVEN Smoothie Arginine/Glut./Ca2+Bmb (Juven 19.3pkt) 240ml cup PO SCH ×2 (08:00→19:37)
[2022-05-22] MEDS ORDERED: ERGOCALCIFEROL 1250 MCG PO SCH (08:00)
[2022-05-22] MEDS: HYDROcodone/acetaminophen 5mg/325mg tablet PO PRN (08:14)
--- NOTE | 2022-05-22 16:02 | NUR ---
F/u 05/22: Pt PO further regressing past 6 days ~33% avg w/ refusals and refusing Alberto smoothie BIDBD not meeting needs. Noted only small BM's documented since 05/08 both constipated and w/ copious stool per EMR. Pt seen by RD at bedside; pt confirms constipation past 5 days resolving late last night w/ significant BM afterwards. Pt acknowledges constipation impacting PO trends however continues to be very picky w/ meals reports food preferences which are already being provided. Pt reports dislikes smoothies but when RD educated pt on Alberto smoothies importance for wound healing pt agreeable to drink. Pt is agreeable to magic cup TIDWM-dietary notified. Given poor PO trends past 6 days and generalized severe weakness pt meets severe malnutrition criteria; MD notified. Will monitor for further PO trends now that constipation resolved and nutrition intervention needs this admit. Recommendations: 1) Continue SB6 diet with thin liquids per pt preference d/t difficulty chewing; encourage PO 2) [place] Alberto smoothie BIDBD for wound healing; encourage PO 3) [place] food preferences: applesauce WB, cottage cheese and peaches WL, sherbet WS; pt likes cheese with crackers and mashed potatoes with gravy; pt dislikes pears, blueberries, raspberries, gelatin, carrots, and Ensure 4) Routine and PRN bowel care 5) Scaled weight this admit; subsequent weekly scaled weights Addendum: 05/22/22 at [address] Amended: Links added.
[2022-05-22 16:54] VITALS: BP 93/56
[2022-05-22 18:00] VITALS: BP 97/64
--- NOTE | 2022-05-22 18:51 | NUR ---
Problems reprioritized. Patient report given, questions answered & plan of care reviewed with Rufino HERNANDEZ.
[2022-05-22 19:00] VITALS: BP 103/59
[2022-05-22] MEDS: sennosides/docusate sodium tablet PO SCH (19:37)
[2022-05-22 22:00] VITALS: BP 109/59
[2022-05-23] MEDS: HYDROmorphone 1 mg/ml syringe IV PRN ×4 (05:05→21:05)
[2022-05-23 06:00] VITALS: BP 113/76
--- NOTE | 2022-05-23 06:49 | NUR ---
Patient in room FLEX 350. I have received report from Byron and had the opportunity to ask questions and assume patient care.
[2022-05-23] MEDS: K and/or MAG REPLACEMENT MC SCH ×2 (08:00→20:00)
[2022-05-23] MEDS: metoprolol succinate 25mg (24-HOUR) SR. Tablet PO SCH (08:38)
[2022-05-23] MEDS: apixaban 5mg tablet PO SCH ×2 (08:38→20:59)
[2022-05-23] MEDS: sennosides/docusate sodium tablet PO SCH ×2 (08:38→20:59)
[2022-05-23] MEDS: aspirin 81mg, enteric-coated 1 TAB TABLET.DR PO SCH (08:38)
[2022-05-23] MEDS: docusate sod 100mg capsule PO SCH ×2 (08:38→20:59)
[2022-05-23] MEDS: pregabalin 75mg capsule PO SCH ×2 (08:38→20:59)
[2022-05-23] MEDS: HYDROcodone/acetaminophen 10/325mg tab PO PRN ×3 (08:39→19:31)
[2022-05-23] MEDS: lisinopril 10 MG tablet PO SCH (08:39)
[2022-05-23] MEDS: furosemide 20MG tablet PO SCH ×2 (08:40→20:59)
[2022-05-23] MEDS: tetrahydrozoline 0.05% 15ml ophthalmic drops EACHEYE SCH ×2 (08:41→20:59)
[2022-05-23] MEDS: pantoprazole 40mg Tablet.DR PO SCH (08:46)
[2022-05-23] MEDS: JUVEN Smoothie Arginine/Glut./Ca2+Bmb (Juven 19.3pkt) 240ml cup PO SCH ×2 (08:50→20:59)
[2022-05-23 10:00] VITALS: BP 96/53
[2022-05-23 18:00] VITALS: BP 90/54
[2022-05-23 22:00] VITALS: BP 94/54
[2022-05-24] MEDS: HYDROcodone/acetaminophen 10/325mg tab PO PRN ×5 (00:15→22:44)
[2022-05-24] MEDS: HYDROmorphone 1 mg/ml syringe IV PRN ×2 (03:10→20:21)
[2022-05-24 05:00] VITALS: BP 98/56
[2022-05-24] MEDS: pregabalin 75mg capsule PO SCH ×2 (07:55→20:21)
[2022-05-24] MEDS: aspirin 81mg, enteric-coated 1 TAB TABLET.DR PO SCH (07:55)
[2022-05-24] MEDS: lisinopril 10 MG tablet PO SCH (08:00)
[2022-05-24] MEDS: metoprolol succinate 25mg (24-HOUR) SR. Tablet PO SCH (08:00)
[2022-05-24] MEDS: K and/or MAG REPLACEMENT MC SCH ×2 (08:00→20:00)
[2022-05-24] MEDS: tetrahydrozoline 0.05% 15ml ophthalmic drops EACHEYE SCH ×2 (08:39→20:22)
[2022-05-24] MEDS: furosemide 20MG tablet PO SCH ×2 (08:40→20:20)
[2022-05-24] MEDS: JUVEN Smoothie Arginine/Glut./Ca2+Bmb (Juven 19.3pkt) 240ml cup PO SCH ×2 (08:40→20:00)
[2022-05-24] MEDS: docusate sod 100mg capsule PO SCH ×2 (08:40→20:20)
[2022-05-24] MEDS: apixaban 5mg tablet PO SCH ×2 (08:40→20:21)
[2022-05-24] MEDS: pantoprazole 40mg Tablet.DR PO SCH (08:40)
[2022-05-24] MEDS: sennosides/docusate sodium tablet PO SCH ×2 (08:40→20:20)
--- NOTE | 2022-05-24 08:50 | NUR ---
PAGER ID: [phone] MESSAGE: Giulia James 350b Pt. increased labor of breathing, sating at 86% RA, Course crackles throughout anterior LS. CXR? If ordering IV lasix please give SBP parameters. can we DC dilaudid? Akosua [id number]
--- NOTE | 2022-05-24 09:00 | NUR ---
Spoke with MD Hancock as he rounded on the floor. He is aware pt. has moist non-productive cough, coarse crackles LS, and increased 02 need. MD did not want CXR or lasix given at this time. Md also notified of patient's frequent Dilaudid use and plan to discharged soon. See new medication orders.
[2022-05-24 10:00] VITALS: BP 85/51
--- NOTE | 2022-05-24 11:10 | NUR ---
PAGER ID: [phone] MESSAGE: Giulia James 350B Pt. BP 85/51 HR 101. Held metoprolol and lisinopril. Please give parameters for pain medications. Akosua [id number]
--- NOTE | 2022-05-24 11:12 | NUR ---
Hospitalist called back and states give all pain medications. Hold for SBP lower than 80.
[2022-05-24] MEDS ORDERED: HYDROcodone/acetaminophen 10/325mg tab PO PRN (11:15)
[2022-05-24 11:47] VITALS: BP 100/60
--- NOTE | 2022-05-24 11:50 | NUR ---
MESSAGE: Gerson Mendez 359B Pt. and Pt's Marian requesting daily probiotic. Akosua [id number]
[2022-05-24] MEDS: levoFLOXACIN 750MG TABLET PO SCH (14:49)
[2022-05-24] MEDS: magnesium hydroxide 30ml (MOM) UD suspension PO PRN (17:39)
[2022-05-24 18:00] VITALS: BP 120/77
--- NOTE | 2022-05-24 18:38 | NUR ---
Gave report to Becky HERNANDEZ.
[2022-05-24] MEDS: ondansetron/PF 4mg/2ml inj IV PRN (20:21)
[2022-05-24 22:00] VITALS: BP 106/63
[2022-05-25] MEDS: HYDROmorphone 1 mg/ml syringe IV PRN ×2 (02:08→19:05)
[2022-05-25] MEDS: HYDROcodone/acetaminophen 10/325mg tab PO PRN ×4 (05:30→21:42)
[2022-05-25 06:00] VITALS: BP 128/65
--- NOTE | 2022-05-25 06:20 | NUR ---
Problems reprioritized. Patient report given, questions answered & plan of care reviewed with Tea RUBY. Addendum: 05/25/22 at 0621 by Josefina Plaza RN Amended: Links added.
[2022-05-25] MEDS: K and/or MAG REPLACEMENT MC SCH ×2 (08:00→20:00)
[2022-05-25] MEDS: JUVEN Smoothie Arginine/Glut./Ca2+Bmb (Juven 19.3pkt) 240ml cup PO SCH ×2 (08:00→21:22)
[2022-05-25] MEDS: sennosides/docusate sodium tablet PO SCH ×2 (08:19→21:21)
[2022-05-25] MEDS: aspirin 81mg, enteric-coated 1 TAB TABLET.DR PO SCH (08:19)
[2022-05-25] MEDS: pregabalin 75mg capsule PO SCH ×2 (08:19→21:21)
[2022-05-25] MEDS: docusate sod 100mg capsule PO SCH ×2 (08:19→21:21)
[2022-05-25] MEDS: apixaban 5mg tablet PO SCH ×2 (08:19→21:21)
[2022-05-25] MEDS: metoprolol succinate 25mg (24-HOUR) SR. Tablet PO SCH (08:20)
[2022-05-25] MEDS: furosemide 20MG tablet PO SCH ×2 (08:20→21:21)
[2022-05-25] MEDS: lisinopril 10 MG tablet PO SCH (08:20)
[2022-05-25] MEDS: pantoprazole 40mg Tablet.DR PO SCH (08:20)
[2022-05-25] MEDS: tetrahydrozoline 0.05% 15ml ophthalmic drops EACHEYE SCH ×2 (08:21→21:20)
[2022-05-25 11:18] VITALS: BP 99/49
[2022-05-25] MEDS: levoFLOXACIN 750MG TABLET PO SCH (11:36)
--- NOTE | 2022-05-25 16:39 | NUR ---
patient continues to receive pain medications every 2 hours. left foot wound care photos completed foot cleansed and wrapped per orders. No acute changes this shift. All safety measures in place and call light in reach. Will continue to monitor.
[2022-05-25 18:30] VITALS: BP 101/46
--- NOTE | 2022-05-25 18:30 | NUR ---
Patient in room FLEX 350. I have received report from TUNG Metcalf and had the opportunity to ask questions and assume patient care. Addendum: 05/26/22 at 0004 by Nehemiah Crawley RN Amended: Links added.
[2022-05-25 22:00] VITALS: BP 102/57
[2022-05-26] MEDS: HYDROmorphone 1 mg/ml syringe IV PRN ×2 (01:29→21:41)
[2022-05-26] MEDS: HYDROcodone/acetaminophen 10/325mg tab PO PRN ×4 (03:05→16:45)
--- NOTE | 2022-05-26 06:08 | NUR ---
Patient in room FLEX 350. I have received report from Yareli HERNANDEZ and had the opportunity to ask questions and assume patient care.
--- NOTE | 2022-05-26 06:27 | NUR ---
Problems reprioritized. Patient report given, questions answered & plan of care reviewed with TUNG Metcalf. Addendum: 05/26/22 at 06 by Nehemiah Crawley RN Amended: Links added.
[2022-05-26] MEDS: pregabalin 75mg capsule PO SCH ×2 (07:42→21:30)
[2022-05-26] MEDS: pantoprazole 40mg Tablet.DR PO SCH (07:43)
[2022-05-26] MEDS: sennosides/docusate sodium tablet PO SCH ×2 (07:43→21:29)
[2022-05-26] MEDS: metoprolol succinate 25mg (24-HOUR) SR. Tablet PO SCH (07:43)
[2022-05-26] MEDS: apixaban 5mg tablet PO SCH ×2 (07:43→21:29)
[2022-05-26] MEDS: aspirin 81mg, enteric-coated 1 TAB TABLET.DR PO SCH (07:43)
[2022-05-26] MEDS: docusate sod 100mg capsule PO SCH ×2 (07:43→21:29)
[2022-05-26] MEDS: lisinopril 10 MG tablet PO SCH (07:43)
[2022-05-26] MEDS: tetrahydrozoline 0.05% 15ml ophthalmic drops EACHEYE SCH ×2 (07:46→21:25)
[2022-05-26] MEDS: furosemide 20MG tablet PO SCH ×2 (07:46→21:29)
[2022-05-26] MEDS: K and/or MAG REPLACEMENT MC SCH ×2 (08:00→20:00)
[2022-05-26] MEDS: JUVEN Smoothie Arginine/Glut./Ca2+Bmb (Juven 19.3pkt) 240ml cup PO SCH ×3 (08:00→21:30)
[2022-05-26] MEDS ORDERED: HYDR-3972 PO (11:17)
[2022-05-26] MEDS ORDERED: FURO20TA4 PO (11:17)
[2022-05-26] MEDS ORDERED: LEVO750T68 PO (11:17)
[2022-05-26] MEDS ORDERED: LYR75C PO (11:17)
[2022-05-26] MEDS ORDERED: LISI10TA27 PO (11:17)
[2022-05-26] MEDS ORDERED: METO-395 PO (11:17)
[2022-05-26] MEDS: levoFLOXACIN 750MG TABLET PO SCH (12:03)
[2022-05-26 13:36] VITALS: BP 92/58
--- NOTE | 2022-05-26 16:49 | NUR ---
Case managent set up transportation for patient to go home tomorrow. Patient has continued to ask for pain medications every 4 hours around the clock. Blood pressures continue to run low. Patient sabina if asked to spread doses out. MD notified of behaviors. Currently in bed. dressing CDI. All safety measures in place and call light in reach. Will continue to monitor.
[2022-05-26 18:30] VITALS: BP 87/45
--- NOTE | 2022-05-26 19:42 | NUR ---
Patient in room FLEX 350. I have received report from TUNG Metcalf and had the opportunity to ask questions and assume patient care. Addendum: 05/26/22 at 1942 by Nehemiah Crawley RN Amended: Links added.
--- NOTE | 2022-05-26 21:00 | NUR ---
pt refuses dressing change tonight, states was not done today. pt wants changed in morning. Addendum: 05/27/22 at 0339 by Nehemiah Crawley RN Amended: Links added.
[2022-05-26 21:31] VITALS: BP 92/48
[2022-05-27] MEDS: HYDROcodone/acetaminophen 10/325mg tab PO PRN ×3 (03:01→16:26)
--- NOTE | 2022-05-27 06:17 | NUR ---
Problems reprioritized. Patient report given, questions answered & plan of care reviewed with TUNG Metcalf. Addendum: 05/27/22 at 0618 by Nehemiah Crawley RN Amended: Links added.
--- NOTE | 2022-05-27 06:35 | NUR ---
Patient in room FLEX 350. I have received report from Nehemiah HERNANDEZ and had the opportunity to ask questions and assume patient care.
[2022-05-27] MEDS: apixaban 5mg tablet PO SCH (07:46)
[2022-05-27] MEDS: pregabalin 75mg capsule PO SCH (07:46)
[2022-05-27] MEDS: pantoprazole 40mg Tablet.DR PO SCH (07:47)
[2022-05-27] MEDS: aspirin 81mg, enteric-coated 1 TAB TABLET.DR PO SCH (07:47)
[2022-05-27] MEDS: furosemide 20MG tablet PO SCH (07:47)
[2022-05-27] MEDS: metoprolol succinate 25mg (24-HOUR) SR. Tablet PO SCH (07:47)
[2022-05-27] MEDS: sennosides/docusate sodium tablet PO SCH (07:47)
[2022-05-27] MEDS: tetrahydrozoline 0.05% 15ml ophthalmic drops EACHEYE SCH (08:00)
[2022-05-27] MEDS: K and/or MAG REPLACEMENT MC SCH (08:00)
[2022-05-27] MEDS: docusate sod 100mg capsule PO SCH (08:06)
[2022-05-27] MEDS: lisinopril 10 MG tablet PO SCH (08:06)
[2022-05-27] MEDS: JUVEN Smoothie Arginine/Glut./Ca2+Bmb (Juven 19.3pkt) 240ml cup PO SCH (08:06)
--- NOTE | 2022-05-27 08:49 | NUR ---
WOC signed off to primary nursing for surgical incision care S/P TMA.
--- NOTE | 2022-05-27 09:06 | NUR ---
patient unable to ambulate. HOB at 45 degrees nasal cannula removed 02 remained at 90% RA. Patient asleep and remained at 90% RA. Patient denies the need for oxygen at home at this time. MD notified case management notified.
[2022-05-27] MEDS: levoFLOXACIN 750MG TABLET PO SCH (10:49)
[2022-05-27 11:00] VITALS: BP 113/97
--- NOTE | 2022-05-27 15:30 | NUR ---
I have reviewed and agree with interventions, assessments and documentation by Tea See LVN.
[2022-05-27 16:12] VITALS: BP 114/78
--- NOTE | 2022-05-27 17:27 | NUR ---
Patient discharged home. Left on rney transported by [facility]. IV removed. Gauze in place. Patient medicated with 2 10-325 [place] for the ride. Large bowel movement today. Placed in brief continues to be incontinent of urine. All belongings put in bags and left with patient. All New medications and education provided to patient. All medications sent to [facility] in [place]. Vital signs stable. 02 92% RA. Wound care pictures taken and put in chart. Dressing to left foot CDI. [facility] given report. All paper work signed and placed in chart.
== END 2022-05-27 17:00 | disposition home or self-care (01) | DRG 710 ==
LOC: ER 19:02 → EDBEDREQ 05-08 01:12 → ED HOLD 05-08 01:32 → EDBEDREQ 05-08 04:03 → SUR 3N 05-08 08:45
PROVIDERS: ADMIT Family Medicine; ATTEND Internal Medicine
PROC: B4201ZZ Computerized Tomography (CT Scan) of Abdominal Aorta using Low Osmolar Contrast (ICD-10-PCS; 2022-05-08)
PROC: B4241ZZ Computerized Tomography (CT Scan) of Superior Mesenteric Artery using Low Osmolar Contrast (ICD-10-PCS; 2022-05-08)
PROC: B4281ZZ Computerized Tomography (CT Scan) of Bilateral Renal Arteries using Low Osmolar Contrast (ICD-10-PCS; 2022-05-08)
PROC: B42C1ZZ Computerized Tomography (CT Scan) of Pelvic Arteries using Low Osmolar Contrast (ICD-10-PCS; 2022-05-08)
PROC: B42H1ZZ Computerized Tomography (CT Scan) of Bilateral Lower Extremity Arteries using Low Osmolar Contrast (ICD-10-PCS; 2022-05-08)
PROC: B4211ZZ Computerized Tomography (CT Scan) of Celiac Artery using Low Osmolar Contrast (ICD-10-PCS; 2022-05-08)
PROC: BP2 Imaging, Non-Axial Upper Bones, Computerized Tomography (CT Scan) (ICD-10-PCS; 2022-05-11)
PROC: 0Y6N0ZB Detachment at Left Foot, Partial 2nd Ray, Open Approach (ICD-10-PCS; 2022-05-15)
PROC: 0Y6N0ZC Detachment at Left Foot, Partial 3rd Ray, Open Approach (ICD-10-PCS; 2022-05-15)
PROC: 0Y6N0ZD Detachment at Left Foot, Partial 4th Ray, Open Approach (ICD-10-PCS; 2022-05-15)
PROC: 0Y6N0ZF Detachment at Left Foot, Partial 5th Ray, Open Approach (ICD-10-PCS; 2022-05-15)
PROC: 3E0T3BZ Introduction of Anesthetic Agent into Peripheral Nerves and Plexi, Percutaneous Approach (ICD-10-PCS; 2022-05-15)
PROC: 3E0T33Z Introduction of Anti-inflammatory into Peripheral Nerves and Plexi, Percutaneous Approach (ICD-10-PCS; 2022-05-15)
PROC: 0Y6N0Z9 Detachment at Left Foot, Partial 1st Ray, Open Approach (ICD-10-PCS; principal; 2022-05-15 19:06)
DX: A41.9 Sepsis, unspecified organism (principal); J96.01 Acute respiratory failure with hypoxia; I50.33 Acute on chronic diastolic (congestive) heart failure; I21.A1 Myocardial infarction type 2; E43 Unspecified severe protein-calorie malnutrition; I70.262 Atherosclerosis of native arteries of extremities with gangrene, left leg; E88.09 Other disorders of plasma-protein metabolism, not elsewhere classified; L03.116 Cellulitis of left lower limb; I48.0 Paroxysmal atrial fibrillation; I11.0 Hypertensive heart disease with heart failure; J20.9 Acute bronchitis, unspecified; J44.0 Chronic obstructive pulmonary disease with (acute) lower respiratory infection; M48.02 Spinal stenosis, cervical region; J44.1 Chronic obstructive pulmonary disease with (acute) exacerbation; D64.9 Anemia, unspecified; E78.00 Pure hypercholesterolemia, unspecified; K21.9 Gastro-esophageal reflux disease without esophagitis; G89.29 Other chronic pain; R30.0 Dysuria; E83.42 Hypomagnesemia; E87.6 Hypokalemia; F17.210 Nicotine dependence, cigarettes, uncomplicated; K44.9 Diaphragmatic hernia without obstruction or gangrene; Z79.899 Other long term (current) drug therapy; Z88.0 Allergy status to penicillin; Z88.7 Allergy status to serum and vaccine; Z71.6 Tobacco abuse counseling; Z68.21 Body mass index [BMI] 21.0-21.9, adult
CPT/HCPCS: 36415; 71045; 72141; 73206; 73718; 75635; 80048; 80053; 80061; 80202; 81003; 82948; 83036; 83605; 83735; 83880; 84100; 84132; 84145; 84484; 85025; 85379; 85610; 85730; 87070; 87075; 87081; 87324; 87449; 93005; 93306; 94640; 94760; 97110; 97161; 97164; 97530; 97535; 99285; A4615; A4618; A6212; A6213; A6222; A6250; A6446; A6449; A6550; A7000; G0378; J0131; J0690; J1100; J1170; J1644; J1940; J2060; J2175; J2405; J2543; J2704; J2765; J2795; J2930; J3010; J3370; J3490; J7030; J7040; J7120; Q9967